=== PATIENT | male | born 1955 | race Caucasian/White ===

== ENCOUNTER 2017-06-17 10:57 | Inpatient (IN) | payer OTHER ==
[~2017-06-17] VITALS: Ht 182.9 cm; Wt 66.2 kg
[2017-06-17] VITALS (8 sets, daily range): BP systolic 99–124; BP diastolic 54–86
[2017-06-17 11:33] LABS: HEMATOCRIT 48.3 % (42.0-52.0); HEMOGLOBIN 16.5 gm/dL (14.0-18.0); MCHC 34.2 g/dL (28.0-37.0); MCV 93.7 fL (80.0-100.0); MPV 9.7 fl. (7.2-11.1); NUCLEATED RBCS 0 /100WBC; PLATELET COUNT* 112 thou/uL (150-400); RBC 5.16 mil/uL (4.50-6.00); RDW-CV 13.7 % (10.5-14.5); WBC 14.6 thou/uL (4.0-11.0)
[2017-06-17 11:39] LABS: ANION GAP 9 mmol/L (7-16); BUN 28 mg/dL (7-18); CALCIUM 9.3 mg/dL (8.5-10.1); CHLORIDE 94 mmol/L (98-107); CO2 27 mmol/L (21-32); CREATININE 1.6 mg/dL (0.6-1.3); GLUCOSE 155 mg/dL (70-99); POTASSIUM 4.4 mmol/L (3.5-5.1); SODIUM 130 mmol/L (136-145)
[2017-06-17 11:41] LABS: INR 1.1; PROTIME 10.5 Seconds (9.20-11.50)
[2017-06-17 11:46] LABS: BE -2.9 mmol/L (-2 to +3); HCO3 24.5 mmol/L (22.0-26.0); PO2 74.8 mmHg (75.0-100.0)
[2017-06-17 11:47] LABS: PCO2 51.6 mmHg (35.0-45.0); pH 7.294 (7.340-7.450)
[2017-06-17 11:51] LABS: ALBUMIN 2.7 g/dL (3.4-5.0); ALKALINE PHOSPHATASE 57 U/L (46-116); LIPASE 55 U/L (73-393); NT-PRO BRAIN NAT PEPTIDE 4571 pg/mL (<300); SGOT 65 U/L (15-37); SGPT 51 U/L (30-65); TOTAL PROTEIN 7.2 g/dL (6.4-8.2); TROPONIN-I LEVEL <0.06 ng/mL (<0.06)
[2017-06-17 12:01] LABS: INFLUENZA A ANTIGEN None Detected (None Detect); INFLUENZA B ANTIGEN None Detected (None Detect)
[2017-06-17 12:14] LABS: METAMYELOCYTES 3 %; MYELOCYTES 2 %
[2017-06-17 12:15] LABS: ABSOLUTE MONOCYTES 0.7 thou/uL (0.0-1.2); ABSOLUTE NEUTROPHILS 12.8 thou/uL (1.6-8.1); PLATELET ESTIMATE ADEQUATE
[2017-06-17 15:00] LABS: BE -3.9 mmol/L (-2 to +3); HCO3 23.6 mmol/L (22.0-26.0)
[2017-06-17 15:02] LABS: PCO2 51.9 mmHg (35.0-45.0); pH 7.275 (7.340-7.450)
--- NOTE | 2017-06-17 17:06 | 2DMMODE ---
[place] [address] 2 D/M-MODE ECHOCARDIOGRAM Name: JULIAN SIMS Room: [address] IN [facility]#: [id number] Admission: 06/17/17 Attend Phys: Inocencio Mo Discharge: Date of : 51 Date of Service: 06/17/17 1706 Report #: [id number] THIS REPORT FOR: //name// APPROVED REPORT Study performed: 06/17/2017 15:29:39 EXAM: Comprehensive 2D, Doppler, and color-flow Echocardiogram Patient Location: In-Patient Room #: ER Status: routine BSA: 2.13 HR: 96 bpm BP: 104/59 mmHg Rhythm: Atrial Fibrillation Other Information Study Quality: Good Indications Dyspnea 2D Dimensions LVEF(%): 39.88 (>50%) IVSd: 11.94 (7-11mm) LVOT Diam: 21.33 (18-24mm) LVDd: 49.22 mm PWd: 11.35 (7-11mm) LVDs: 39.64 (25-40mm) Aortic Root: 33.06 mm Guardado's LVEF: 39.88 % Volumes Left Atrial Volume (Systole) LA ESV Index: 15.00 mL/m2 Aortic Valve AoV Peak Ramana.: 1.52 m/s AO Peak Gr.: 9.19 mmHg LVOT Max P.59 mmHg AO Mean Gr.: 5.40 mmHg LVOT Mean P.40 mmHg LVOT Max V: 1.07 m/s AO V2 VTI: 20.54 cm LVOT Mean V: 0.73 m/s ALISIA (VTI): 2.79 cm2 LVOT V1 VTI: 16.02 cm AI Hyde: 2.54 m/s2 AI PHT: 452.89 [place] [address] 2 D/M-MODE ECHOCARDIOGRAM Name: JULIAN SIMS Room: [address] IN [facility].#: [id number] Admission: 06/17/17 Attend Phys: Inocencio Mo Discharge: Date of : 51 Date of Service: 06/17/17 1706 Report #: [id number] Mitral Valve MV Decel. Time: 102.04 ms MV PHT: 29.59 ms MVA (PHT): 7.43 cm2 TDI Medial E' Ramana.: 0.12 m/s Lateral E' Ramana.: 0.12 m/s Pulmonary Valve PV Peak Ramana.: 1.07 m/s PV Peak Gr.: 4.56 mmHg Tricuspid Valve TR Peak Gr.: 16.66 mmHg RVSP: 21.00 mmHg Left Ventricle The left ventricle is normal size. There is normal LV segmental wall motion. There is normal left ventricular wall thickness. Left ventricular systolic function is mildly decreased. LVEF is 40-45%. This study is not technically sufficient to allow evaluation of the LV diastolic function due to atrial fibrillation. Right Ventricle The right ventricle is normal size. The right ventricular systolic function is normal. Atria The left atrium size is normal. The right atrium size is normal. Aortic Valve The aortic valve is normal in structure. Moderate aortic regurgitation. There is no aortic valvular stenosis. Mitral Valve The mitral valve is normal in structure. There is no mitral valve regurgitation noted. No evidence of mitral valve stenosis. Tricuspid Valve The tricuspid valve is normal in structure. Trace tricuspid regurgitation. The RVSP is ___21____ mmHg. Pulmonic Valve The pulmonary valve is normal in structure. There is no pulmonic [place] [address] 2 D/M-MODE ECHOCARDIOGRAM Name: JULIAN SIMS Room: [address]#: [id number] Admission: 06/17/17 Attend Phys: Inocencio Mo Discharge: Date of : 51 Date of Service: 06/17/17 1706 Report #: [id number] Great Vessels The aortic root is normal in size. IVC is normal in size and collapses with >50% inspiration Pericardium There is no pericardial effusion. <Conclusion> The left ventricle is normal size. There is normal left ventricular wall thickness. Left ventricular systolic function is mildly decreased. LVEF is 40-45%. This study is not technically sufficient to allow evaluation of the LV diastolic function due to atrial fibrillation. Moderate aortic regurgitation. Trace tricuspid regurgitation. The RVSP is ___21____ mmHg. <ELECTRONICALLY SIGNED> By: Car Kothari MD, [facility] 06/17/171705 05 05 Car Kothari MD, FACC /INF
--- NOTE | 2017-06-17 17:32 | EKG ---
[place] [address] ELECTROCARDIOGRAM REPORT Name: JULIAN SIMS Room: [address] ADM IN [facility]#: [id number] Admission: 06/17/17 Attend Phys: Bolivar Serrato Discharge: Date of : 51 Report #: [id number] THIS REPORT FOR: //name// [facility] ED Test Date: 2017-06-17 Test Time: 11:22:06 Pat Name: JULIAN SIMS Department: Room: [facility] Gender: M Audiovisual Tech: : 1955 Requested By: Fly Carlilse Order Number: [id number] Ivan MD: Car Kothari Measurements Intervals [place] Rate: 138 P: WV: QRS: 58 QRSD: 89 T: 0 QT: 212 QTc: 321 Interpretive Statements Atrial flutter with variable AV conduction Borderline repol abnrm, inferolateral leads Baseline wander in lead(s) I,II,aVR No previous ECG available for comparison Electronically Signed On 06-17-2017 17:32:30 CITY PLANT SUPERVISOR by Car Kothari [email or web address] <ELECTRONICALLY SIGNED> By: Car Kothari MD, FACC 06/17/17 1732 1122 1122 Car Kothari MD, FAC /EPI
--- NOTE | 2017-06-17 17:32 | EKG ---
[place] [address] ELECTROCARDIOGRAM REPORT Name: JULIAN SIMS Room: [address] ADM IN [facility]#: [id number] Admission: 06/17/17 Attend Phys: Bolivar Serrato Discharge: Date of : 51 Report #: [id number] THIS REPORT FOR: //name// [facility] ED Test Date: 2017-06-17 Test Time: 11:12:14 Pat Name: JULIAN SIMS Department: Room: [facility] Gender: M Dental Services Director: Jarod DEY : 1955 Requested By: Fly Carlisle Order Number: [id number] MD: Car Kothari Measurements Intervals [place] Rate: 171 P: 79 SC: 81 QRS: 44 QRSD: 126 T: -78 QT: 309 QTc: 522 Interpretive Statements Atrial flutter with 21 conduction Nonspecific intraventricular conduction delay No previous ECG available for comparison Electronically Signed On 06-17-2017 17:32:01 ENGAGEMENT MANAGER by Car Kothari [email or web address] <ELECTRONICALLY SIGNED> By: Car Kothari MD, [facility] 06/17/17 1732 1112 111 Car Kothari MD, FAC /EPI
[2017-06-18] VITALS (34 sets, daily range): BP systolic 99–178; BP diastolic 45–85
[2017-06-18 03:24] LABS: BE -5.3 mmol/L (-2 to +3); HCO3 22.7 mmol/L (22.0-26.0)
[2017-06-18 03:28] LABS: PCO2 54.5 mmHg (35.0-45.0); pH 7.238 (7.340-7.450)
[2017-06-18 03:29] LABS: PO2 146.8 mmHg (75.0-100.0)
[2017-06-18 05:09] LABS: ABSOLUTE LYMPHOCYTES 0.2 thou/uL (0.8-5.3); EOSINOPHILS 0.1 %; MONOCYTES 0.1 %; RDW-CV 14.2 % (10.5-14.5)
[2017-06-18 05:10] LABS: ABSOLUTE NEUTROPHILS 11.7 thou/uL (1.6-8.1); BASOPHILS 0.1 %; HEMATOCRIT 40.4 % (42.0-52.0); LYMPHOCYTES 1.4 %; MCH 31.8 pg (26.0-34.0); MCHC 33.5 g/dL (28.0-37.0); MCV 94.8 fL (80.0-100.0); MPV 9.3 fl. (7.2-11.1); NUCLEATED RBCS 0 /100WBC; PLATELET COUNT* 131 thou/uL (150-400); POLYS 98.3 %; RBC 4.26 mil/uL (4.50-6.00); WBC 11.9 thou/uL (4.0-11.0)
[2017-06-18 05:28] LABS: CALCIUM 8.5 mg/dL (8.5-10.1); CREATININE 1.4 mg/dL (0.6-1.3); POTASSIUM 4.7 mmol/L (3.5-5.1); TOTAL BILIRUBIN 0.7 mg/dL (<0.1-1.0); TOTAL PROTEIN 6.1 g/dL (6.4-8.2)
[2017-06-18 05:52] LABS: HEMOGLOBIN 13.5 gm/dL (14.0-18.0)
--- NOTE | 2017-06-18 12:25 | EKG ---
[place] [address] ELECTROCARDIOGRAM REPORT Name: JULIAN SIMS Room: [address] ADM IN [facility]#: [id number] Admission: 06/17/17 Attend Phys: Bolivar Serrato Discharge: Date of : 51 Report #: [id number] THIS REPORT FOR: //name// [facility] ED Test Date: 2017-06-17 Test Time: 15:00:26 Pat Name: JULIAN SIMS Department: Room: [facility] Gender: M Director Cpg: Jarod DEY : 1955 Requested By: Fly Carlisle Order Number: [id number] MD: Bj Everett Measurements Intervals [place] Rate: 123 P: NV: QRS: 67 QRSD: 87 T: 51 QT: 319 QTc: 457 Interpretive Statements Atrial fibrillation Compared to ECG 06/17/2017 11:22:06 Atrial flutter no longer present Electronically Signed On 06-18-2017 12:25:39 ANIMAL RESEARCHER by Bj Everett [email or web address] <ELECTRONICALLY SIGNED> By: Bj Everett MD, [facility] 06/18/17 1225 1500 1500 Bj Everett MD, [facility] /EPI
--- NOTE | 2017-06-18 12:33 | EKG ---
[place] [address] ELECTROCARDIOGRAM REPORT Name: JULIAN SIMS Room: [address] ADM IN .R.#: [id number] Admission: 06/17/17 Attend Phys: Bolivar Serrato Discharge: Date of : 51 Report #: [id number] THIS REPORT FOR: //name// [facility] Test Date: 2017-06-18 Test Time: 08:08:53 Pat Name: JULIAN SIMS Department: Room: [address] Gender: M Value Analysis Coordinator: : 1955 Requested By: Inocencio Mo Order Number: [id number] Ivan MD: Bj Everett Measurements Intervals [place] Rate: 94 P: OR: QRS: 65 QRSD: 100 T: 58 QT: 352 QTc: 441 Interpretive Statements Atrial fibrillation Probable left ventricular hypertrophy Baseline wander in lead(s) V3 Compared to ECG 06/17/2017 11:22:06 rate slowed Electronically Signed On 06-18-2017 12:32:41 NURSING SUPPORT WORKER by Bj Everett [email or web address] <ELECTRONICALLY SIGNED> By: Bj Everett MD, [facility] 06/18/17 1232 0808 0808 Bj Everett MD, [facility] /EPI
[2017-06-18 16:58] LABS: BE -2.5 mmol/L (-2 to +3); HCO3 23.9 mmol/L (22.0-26.0); PCO2 47.3 mmHg (35.0-45.0); PO2 91.9 mmHg (75.0-100.0); pH 7.321 (7.340-7.450)
[2017-06-19] VITALS (49 sets, daily range): BP systolic 103–145; BP diastolic 53–79
[2017-06-19 08:31] LABS: BE -2.7 mmol/L (-2 to +3); HCO3 23.7 mmol/L (22.0-26.0); PCO2 46.9 mmHg (35.0-45.0); PO2 73.3 mmHg (75.0-100.0); pH 7.321 (7.340-7.450)
[2017-06-19 13:48] LABS: ALBUMIN 1.7 g/dL (3.4-5.0); CALCIUM 8.4 mg/dL (8.5-10.1); CREATININE 1.2 mg/dL (0.6-1.3); MAGNESIUM 2.9 mg/dL (1.8-2.4); POTASSIUM 4.3 mmol/L (3.5-5.1); TOTAL BILIRUBIN 0.5 mg/dL (<0.1-1.0); TOTAL PROTEIN 5.4 g/dL (6.4-8.2)
[2017-06-19 13:49] LABS: ABSOLUTE BASOPHILS 0.1 thou/uL (0.0-0.2); ABSOLUTE LYMPHOCYTES 0.2 thou/uL (0.8-5.3); ABSOLUTE NEUTROPHILS 13.8 thou/uL (1.6-8.1); BASOPHILS 0.5 %; HEMATOCRIT 38.8 % (42.0-52.0); HEMOGLOBIN 12.8 gm/dL (14.0-18.0); LYMPHOCYTES 1.4 %; MCH 31.9 pg (26.0-34.0); MCHC 32.9 g/dL (28.0-37.0); MCV 96.8 fL (80.0-100.0); MONOCYTES 0.3 %; MPV 9.7 fl. (7.2-11.1); NUCLEATED RBCS 0 /100WBC; PLATELET COUNT* 151 thou/uL (150-400); POLYS 97.8 %; RBC 4.01 mil/uL (4.50-6.00); RDW-CV 14.9 % (10.5-14.5); WBC 14.1 thou/uL (4.0-11.0)
[2017-06-20] VITALS (17 sets, daily range): BP systolic 99–134; BP diastolic 54–73
[2017-06-20 04:38] LABS: ABSOLUTE LYMPHOCYTES 0.2 thou/uL (0.8-5.3); ABSOLUTE MONOCYTES 0.2 thou/uL (0.0-1.2); ABSOLUTE NEUTROPHILS 15.7 thou/uL (1.6-8.1); BASOPHILS 0.2 %; HEMATOCRIT 38.4 % (42.0-52.0); HEMOGLOBIN 12.6 gm/dL (14.0-18.0); LYMPHOCYTES 1.3 %; MCH 31.5 pg (26.0-34.0); MCHC 32.9 g/dL (28.0-37.0); MCV 95.9 fL (80.0-100.0); MONOCYTES 1.2 %; MPV 8.9 fl. (7.2-11.1); NUCLEATED RBCS 0 /100WBC; PLATELET COUNT* 144 thou/uL (150-400); POLYS 97.3 %; RBC 4.01 mil/uL (4.50-6.00); RDW-CV 14.9 % (10.5-14.5); WBC 16.1 thou/uL (4.0-11.0)
[2017-06-20 04:56] LABS: ALBUMIN 1.7 g/dL (3.4-5.0); CALCIUM 9.1 mg/dL (8.5-10.1); CREATININE 1.2 mg/dL (0.6-1.3); MAGNESIUM 2.9 mg/dL (1.8-2.4); POTASSIUM 4.1 mmol/L (3.5-5.1); TOTAL BILIRUBIN 0.5 mg/dL (<0.1-1.0); TOTAL PROTEIN 6.4 g/dL (6.4-8.2)
[2017-06-20 08:23] LABS: BE -1.3 mmol/L (-2 to +3); PCO2 47.8 mmHg (35.0-45.0); PO2 72.6 mmHg (75.0-100.0); pH 7.336 (7.340-7.450)
[2017-06-20 22:26] LABS: URINE BILIRUBIN NEGATIVE (Negative); URINE BLOOD 3+ (Negative); URINE CLARITY CLEAR; URINE COLOR YELLOW; URINE GLUCOSE-RANDOM NEGATIVE (Negative); URINE KETONES NEGATIVE (Negative); URINE LEUKOCYTES-REFLEX NEGATIVE (Negative); URINE NITRITE-REFLEX NEGATIVE (Negative); URINE PROTEIN TRACE (Negative); URINE SPECIFIC GRAVITY 1.015 (1.005-1.030); URINE UROBILINOGEN 0.2 E.U./dl (0.2-1.0)
[2017-06-20 22:35] LABS: SQUAMOUS 0-3 Few /LPF (0-3); URINE WBC-REFLEX None Seen /HPF (0-5)
[2017-06-20 22:36] LABS: BACTERIA-REFLEX None Seen /HPF (None Seen); CRYSTALS None Seen /LPF (None Seen); FINE GRANULAR CASTS 0-3 Few /LPF (None Seen); HYALINE CASTS 0-3 Few /LPF (None Seen); URINE RBC >20 Many /HPF (0-2)
[2017-06-21] VITALS (18 sets, daily range): BP systolic 114–156; BP diastolic 57–86
[2017-06-21 04:55] LABS: HEMATOCRIT 37.6 % (42.0-52.0); HEMOGLOBIN 12.4 gm/dL (14.0-18.0); MCH 31.4 pg (26.0-34.0); MCHC 32.9 g/dL (28.0-37.0); MCV 95.5 fL (80.0-100.0); MPV 8.9 fl. (7.2-11.1); NUCLEATED RBCS 0 /100WBC; PLATELET COUNT* 131 thou/uL (150-400); RBC 3.94 mil/uL (4.50-6.00); WBC 13.8 thou/uL (4.0-11.0)
[2017-06-21 05:10] LABS: CREATININE 1.2 mg/dL (0.6-1.3); POTASSIUM 3.9 mmol/L (3.5-5.1)
[2017-06-21 05:30] LABS: ABSOLUTE LYMPHOCYTES 0.3 thou/uL (0.8-5.3); ABSOLUTE NEUTROPHILS 13.5 thou/uL (1.6-8.1); ANISOCYTOSIS 1+; PLATELET ESTIMATE DECREASED; POIKILOCYTOSIS 1+
--- NOTE | 2017-06-21 08:34 | CON ---
[address] [address] CONSULTATION Name: JULIAN SIMS Zonia Room: [address] IN .R#: [id number] Admission: 06/17/17 Attend Phys: Bolivar Serrato Discharge: Date of : 51 Report #: [id number] THIS REPORT FOR: //name// CC: MEE physician/PCP Inocencio Mo DATE OF SERVICE: 06/17/2017 CARDIOLOGY CONSULTATION INDICATION: Atrial flutter with rapid ventricular response rate. HISTORY OF PRESENT ILLNESS: The patient is a 61-year-old gentleman who was seen in the Emergency Room with complaints of progressive shortness of breath and dyspnea. He was noted to be in atrial flutter with rapid ventricular response. Adenosine challenge and covered atrial flutter pattern. The patient denies any prior cardiac history. He is not having palpitations. Presently on BiPAP. He is alert and oriented. He denies chest pain. He is not having orthopnea. Chest x-ray suggests multi-lobe pneumonitis. He does not have cardiomegaly. PAST MEDICAL HISTORY: None. MEDICATIONS: None. ALLERGIES: None. SOCIAL HISTORY: One pack per day smoker. The patient denies alcohol use. FAMILY HISTORY: Noncontributory. REVIEW OF SYSTEMS: Not obtained as the patient on BiPAP presently. PHYSICAL EXAMINATION: VITAL SIGNS: Presently stable. Blood pressure 99/60, pulse 140s-150s and regular. GENERAL: This is a thin, somewhat unkempt gentleman who does not appear in distress. HEENT: Head is normocephalic, atraumatic. Pupils equally round and reactive to light. Extraocular muscles are intact. BiPAP in place. NECK: Shows moderate jugular venous distention. CHEST: Reveals course breath sounds bilaterally without obvious wheezes. CARDIAC: Reveals a tachycardic rhythm that appears relatively regular. I do not appreciate obvious gallop or murmur. ABDOMEN: Reveals normal bowel sounds. The abdomen is soft and nontender. EXTREMITIES: Shows no edema. Peripheral pulses are 2+ and palpable. SKIN: [place] [address] CONSULTATION Name: JULIAN SIMS Room: [address] IN [facility]#: [id number] Admission: 06/17/17 Attend Phys: Bolivar Serrato Discharge: Date of : 51 Report #: [id number] DIAGNOSTIC DATA: A 12-lead EKG shows atrial flutter with rapid ventricular response rate. Labs are reviewed. Sodium 130, potassium 4.4, chloride 94, bicarbonate 27, BUN 28, creatinine 1.6, serum glucose 55, AST minimally elevated at 65. The remainder of his LFTs are within normal limits. Albumin is slightly low at 2.7. Troponin is less than 0.06. His NT-proBNP was 4571. White blood cell count 14.6, hemoglobin 16.5, platelet count 112,000. Initial blood gas, pH 7.29, pCO2 of 52, pO2 of 75 on 4 liters nasal cannula. Chest x-ray shows bilateral pneumonitis without effusion, normal cardiac silhouette. VQ scan pending. IMPRESSION AND RECOMMENDATIONS: 1. Atrial flutter with rapid ventricular response. Continue diltiazem drip. The patient is being given bolus Lopressor in an effort to improve rate control. If this fails to improve his dysrhythmia, consider amiodarone bolus and drip. No anticoagulant at this point in time. We will assess once we have clinical improvement. Echocardiogram ordered and pending. We will obtain serial troponins. Initial troponin is unremarkable. He has no clinical symptoms to suggest acute coronary syndrome. 2. Hypercoagulable state secondary to atrial flutter. We will reassess need for anticoagulant within the next 24 hours. 3. Pneumonia. IV antibiotics and steroids per primary care physician. 4. Chronic tobacco abuse. We will discuss smoking cessation during this hospitalization. 5. Mild hypotension due to tachycardia. We will give fluid bolus at this time. 6. Elevated NT-proBNP likely due to atrial tachycardia; however, we will obtain echocardiogram to evaluate for possible underlying congestive heart failure. <ELECTRONICALLY SIGNED> By: Car Kothari MD, FACC 06/21/17 0834 1442 2250Car Kothari MD, FACC /nt
--- NOTE | 2017-06-21 10:00 | CON ---
[address] [address] CONSULTATION Name: JULIAN SIMS Room: [address] IN M.R.#: [id number] Admission: 06/17/17 Attend Phys: Bolivar Serrato Discharge: Date of : 51 Report #: [id number] THIS REPORT FOR: //name// CC: MEE physician/PCP Inocencio Mo REASON FOR CONSULTATION: Acute respiratory failure. HISTORY OF PRESENT ILLNESS: The patient is a 61-year-old male patient, who according to him, does not carry a diagnosis of COPD or lung disease, not on oxygen or inhalers at home. He has history of smoking in the past, although he quit. He presented to the hospital with chief complaint of shortness of breath that started 2 weeks ago, had been progressive and worsening. These symptoms were associated with cough, feeling congestion in his chest and change in bowel habits in the form of diarrhea, also associated with insomnia. He tried some bmxn-miq-stlrulp NyQuil, without improvement in his symptoms and since his symptoms had worsened, he presented to the ER. The patient reported that he quit smoking only when he got sick 2 weeks ago. Upon presentation to the hospital, he was found to be in atrial flutter with rapid ventricular response. He was given adenosine upon presentation. He is currently on Cardizem drip. He has no cardiac history. He denies palpitation. Upon presentation, he was found to be in respiratory distress and he was placed on BiPAP for hypercapnic respiratory failure. When I interviewed the patient, he was on BiPAP, awake, alert and oriented, answering questions properly, although there was some limitation because the BiPAP mask was in place, but he was protecting the airways. He denied any orthopnea or PND. His chest x-ray showed bilateral pulmonary infiltrates. PAST MEDICAL HISTORY: Per the patient, no chronic past medical problems. ALLERGIES: No known drug allergies. HOME MEDICATIONS: Apparently, he does not take any medication at home. PAST SURGICAL HISTORY: None. He had oral surgery in the past. FAMILY HISTORY: Reviewed with the patient and noncontributory. SOCIAL HISTORY: He smoked for almost 40 years, 1 pack per day. He quit when he got sick 2 weeks ago. REVIEW OF SYSTEMS: He is not aware of any fever or chills, but he has weakness. He denied any eye symptoms. He denied any headache or blurring of vision. He denies any sore throat, nasal discharge or obstruction. He denied any hemoptysis. He denied any chest pain or abdominal distention. However, he had diarrhea. He denied dysuria, frequency or urgency. [place] [address] CONSULTATION Name: JULIAN SIMS Room: [address] IN [facility]#: [id number] Admission: 06/17/17 Attend Phys: Bolivar Serrato Discharge: Date of : 51 Report #: [id number] extremity edema. Rest of the review of systems was negative. PHYSICAL EXAMINATION: VITAL SIGNS: During my evaluation, the patient was on BiPAP. He was on 50% FIO2. His O2 saturation was more than 90%. Blood pressure 117/59, not on vasopressors; breathing around 26 times a minute, pulse rate of 90 and temperature of 37.4. GENERAL: Awake, alert, on BiPAP, protecting the airways, answering questions appropriately. HEENT: Head normocephalic, atraumatic. Pupils are equal and reactive to light. Extraocular muscle movements intact. NECK: Supple. No palpable lymph node. No palpable thyroid. Trachea is central. CHEST: Diminished air movement bilaterally, with end-expiratory wheeze in addition to crackles heard bilaterally, with a prolonged expiratory phase. HEART: S1, S2, slightly tachycardic, in AFib. ABDOMEN: Benign, soft, lax, nontender. Positive bowel sounds. No masses felt. LOWER EXTREMITIES: No edema. No calf tenderness. SKIN: Normal for age and race. No rash. LYMPHATIC: No palpable lymph nodes. MUSCULOSKELETAL: Normal on inspection. No deformities. NEUROLOGIC: Moving 4 extremities spontaneously. No focal weakness. PSYCHIATRIC: Mood and affect difficult to evaluate, but he was calm and cooperating with exam. LABORATORY DATA: His chest x-ray initially showed bilateral infiltrates. However, followup chest x-ray showed actually worsening infiltrates bilaterally. His white blood count was 14.6 with hemoglobin of 16.5 and platelets 112,000. He had slight left shift on the differential. His ABGs, he had 3 sets of ABGs that showed hypercapnic respiratory failure. His last set of ABGs, 7.23/54/146 on 50% FiO2 with the BiPAP / and his FIO2 need had been improving. Influenza screen A and B negative. MRSA screen pending. IMPRESSION: 1. Acute hypoxic and hypercapnic respiratory failure. 2. Chronic obstructive pulmonary disease exacerbation. 3. Pneumonia. 4. Atrial flutter. 5. Smoker. PLAN: Although the patient's ABG is showing hypercapnic respiratory failure on BiPAP, however, he is tolerating the BiPAP well. He is protecting the airways. I would continue to monitor him in the ICU closely and follow ABGs and chest x-rays. His mental status is stable, cooperative and protecting the airways. I am going to add vancomycin to the cefepime and defer atrial fibrillation management to Cardiology. Continue scheduled nebulization treatments every [address] [place] [address] CONSULTATION Name: JULIAN SIMS Zonia Room: [address] IN [facility].#: [id number] Admission: 06/17/17 Attend Phys: Bolivar Serrato Discharge: Date of : 51 Report #: [id number] hours. Continue the steroids. I would keep him n.p.o. for now until his respiratory status improves. We will do followup chest x-ray and ABGs when he is more stable and contrast for CT scan of the chest can be useful. Thank you for the consult. We will follow along with you. <ELECTRONICALLY SIGNED> By: Josiah Shirley MD 06/21/17 1000 0946 1027Josiah Shirley MD /silvano
[2017-06-21 15:57] LABS: BE 0.9 mmol/L (-2 to +3); HCO3 26.7 mmol/L (22.0-26.0); PCO2 47.5 mmHg (35.0-45.0); PO2 94.5 mmHg (75.0-100.0); pH 7.368 (7.340-7.450)
[2017-06-21 16:10] LABS: HIV-1/HIV-2 ANTIBODY Non Reactive (Non Reactive)
[2017-06-22] VITALS (19 sets, daily range): BP systolic 141–175; BP diastolic 52–96
[2017-06-22 02:45] LABS: BE 4.7 mmol/L (-2 to +3); HCO3 30.8 mmol/L (22.0-26.0); PO2 94.8 mmHg (75.0-100.0); pH 7.389 (7.340-7.450)
[2017-06-22 02:47] LABS: PCO2 52.1 mmHg (35.0-45.0)
[2017-06-22 04:55] LABS: ABSOLUTE LYMPHOCYTES 0.2 thou/uL (0.8-5.3); ABSOLUTE MONOCYTES 0.1 thou/uL (0.0-1.2); ABSOLUTE NEUTROPHILS 9.7 thou/uL (1.6-8.1); BASOPHILS 0.1 %; HEMATOCRIT 38.8 % (42.0-52.0); HEMOGLOBIN 12.6 gm/dL (14.0-18.0); LYMPHOCYTES 2.1 %; MCH 30.9 pg (26.0-34.0); MCHC 32.5 g/dL (28.0-37.0); MCV 95.1 fL (80.0-100.0); MONOCYTES 1.5 %; MPV 9.1 fl. (7.2-11.1); NUCLEATED RBCS 0 /100WBC; PLATELET COUNT* 111 thou/uL (150-400); POLYS 96.3 %; RBC 4.07 mil/uL (4.50-6.00); RDW-CV 15.5 % (10.5-14.5); WBC 10.1 thou/uL (4.0-11.0)
[2017-06-22 05:03] LABS: CALCIUM 8.7 mg/dL (8.5-10.1); CREATININE 1.3 mg/dL (0.6-1.3); POTASSIUM 3.9 mmol/L (3.5-5.1)
[2017-06-23] VITALS (17 sets, daily range): BP systolic 129–171; BP diastolic 50–90
[2017-06-23 02:07] LABS: ADENOVIRUS Negative (Negative); INFLUENZA A Negative (Negative); INFLUENZA B Negative (Negative); METAPNEUMOVIRUS Negative (Negative); PARAINFLUENZA 1 Negative (Negative); PARAINFLUENZA 2 Negative (Negative); PARAINFLUENZA 3 Negative (Negative); RHINOVIRUS Negative (Negative); RSV A Negative (Negative); RSV B Negative (Negative)
[2017-06-23 02:45] LABS: ABSOLUTE LYMPHOCYTES 0.4 thou/uL (0.8-5.3); ABSOLUTE MONOCYTES 0.4 thou/uL (0.0-1.2); ABSOLUTE NEUTROPHILS 10.1 thou/uL (1.6-8.1); BASOPHILS 0.1 %; HEMATOCRIT 39.4 % (42.0-52.0); LYMPHOCYTES 3.3 %; MCH 31.6 pg (26.0-34.0); MCV 95.8 fL (80.0-100.0); MPV 9.8 fl. (7.2-11.1); NUCLEATED RBCS 0 /100WBC; PLATELET COUNT* 71 thou/uL (150-400); POLYS 92.6 %; RBC 4.11 mil/uL (4.50-6.00); WBC 10.9 thou/uL (4.0-11.0)
[2017-06-23 03:06] LABS: ALBUMIN 1.6 g/dL (3.4-5.0); CALCIUM 8.5 mg/dL (8.5-10.1); CREATININE 1.4 mg/dL (0.6-1.3); POTASSIUM 3.7 mmol/L (3.5-5.1); TOTAL BILIRUBIN 3.6 mg/dL (<0.1-1.0)
[2017-06-23 04:38] LABS: BE 4.8 mmol/L (-2 to +3); HCO3 29.1 mmol/L (22.0-26.0); PCO2 42.2 mmHg (35.0-45.0); PO2 76.8 mmHg (75.0-100.0); pH 7.457 (7.340-7.450)
[2017-06-24] VITALS (20 sets, daily range): BP systolic 105–158; BP diastolic 47–74
[2017-06-24 04:30] LABS: ALBUMIN 1.6 g/dL (3.4-5.0); CALCIUM 8.4 mg/dL (8.5-10.1); CREATININE 1.5 mg/dL (0.6-1.3); POTASSIUM 4.2 mmol/L (3.5-5.1); TOTAL BILIRUBIN 2.1 mg/dL (<0.1-1.0); TOTAL PROTEIN 5.2 g/dL (6.4-8.2)
[2017-06-24 16:57] LABS: BE 5.5 mmol/L (-2 to +3); HCO3 30.3 mmol/L (22.0-26.0); PCO2 44.6 mmHg (35.0-45.0); PO2 96.3 mmHg (75.0-100.0)
[2017-06-25] VITALS (11 sets, daily range): BP systolic 101–139; BP diastolic 49–61
[2017-06-25 04:52] LABS: ALBUMIN 1.4 g/dL (3.4-5.0); CALCIUM 8.1 mg/dL (8.5-10.1); CREATININE 1.3 mg/dL (0.6-1.3); MAGNESIUM 2.4 mg/dL (1.8-2.4); POTASSIUM 4.3 mmol/L (3.5-5.1); TOTAL BILIRUBIN 1.5 mg/dL (<0.1-1.0)
--- NOTE | 2017-06-25 20:10 | CON ---
[address] [address] CONSULTATION Name: MEHRANELLENJULIAN Zonia Room: [address] IN .R.#: [id number] Admission: 06/17/17 Attend Phys: Bolivar Serrato Discharge: Date of : 51 Report #: [id number] THIS REPORT FOR: //name// CC: MEE physician/PCP Inocencio Mo DATE OF SERVICE: 06/24/2017 HISTORY OF PRESENT ILLNESS: This is a 61-year-old male patient who was evaluated by me for altered mental status. This patient does not provide any reliable history, rather he does not talk much. The nurses provided history in this patient and I reviewed the patient's records. This patient has multiple metabolic disturbances. He was admitted with shortening of breath, cough, and congestion and subsequently looks like he has multiple other problems including . The patient is improving to some extent, but the patient is still significantly confused. To me, this patient does not let me examine and is very difficult to carry out much of the examination. REVIEW OF SYSTEMS: Indicate that this patient was seen by cardiology for atrial flutter. He is being followed by multiple other physicians including pulmonary. It looks like he had hypercapnic respiratory failure. This was this patient's 14-point review of systems, which I could obtain from the records. His creatinine has been high. PAST MEDICAL HISTORY: Again, from the records and does look like it is positive for any stroke. FAMILY HISTORY: Unavailable, but I do not think this patient has any family history of any early stroke, no mention of that I could see. SOCIAL HISTORY: Apparently, he does not drink any alcohol. PHYSICAL EXAMINATION: Pretty limited. He keeps his eyes closed and would not let me open it. When I asked him to follow simple command, he does it at about 25% of the time. Otherwise, he is alert when he opens his eyes, but otherwise sleepy. He has no meningeal sign and I cannot carry out any other examination in this patient. He is on pressure breathing. 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 Blood pressure is 115/74 and temperature is 98.6. LABORATORY DATA: WBC is 10.9. IMPRESSION: This patient probably has encephalitis, but he cannot have embolization from the heart with so many things going on with him, therefore it will be desirable to do a CT scan of [place] [address] CONSULTATION Name: JULIAN SIMS Zonia Room: [address]#: [id number] Admission: 06/17/17 Attend Phys: Bolivar Serrato Discharge: Date of : 51 Report #: [id number] RECOMMENDATIONS: 1. I will get a CAT scan done. 2. I will get an EEG done. 3. I will get TSH and vitamin B12 done. 4. We will look at these tests and discuss with you about any other recommendation. I tried to talk to the patient about these testing and I am not sure how much he understands. Thank you very much for this referral. <ELECTRONICALLY SIGNED> By: Moshe Maurice MD 06/25/172009 1150 1452Pbeverly Maurice MD /nt
--- NOTE | 2017-06-25 20:10 | EEG ---
[address] [address] EEG STUDY REPORT Name: JULIAN SIMS Zonia Room: [address] IN [facility]#: [id number] Admission: 06/17/17 Attend Phys: Bolivar Serrato Discharge: Date of : 51 Report #: [id number] THIS REPORT FOR: //name// CC: MEE physician/PCP Inocencio Mo DATE OF SERVICE: 06/24/2017 This patient is being evaluated for altered mental status. EEG was done by placing the electrodes by standard 10/20 system of electrode placement. Both referential and sequential montages were used for recording. Background activity in this patient's EEG is about 7 Hz and 30 microvolt. This is a symmetrical activity. Photic stimulation was unremarkable. This patient became drowsy that is associated with bilaterally symmetrical slowing and vertex sharp waves. Throughout the record, no active epileptiform activity was noticed. Photic stimulation is unremarkable. IMPRESSION: This is an abnormal EEG, which is slow and poorly formed. That is a nonspecific finding, which can occur with encephalopathy, effect of psychotropic medication, dementia, etc. Clinical correlation is recommended. <ELECTRONICALLY SIGNED> By: Moshe Maurice MD 06/25/172009 1837 16Parjuventino Maurice MD /nt
[2017-06-26] VITALS: BP 111/53
[2017-06-26 04:00] VITALS: BP 104/46
[2017-06-26 08:30] VITALS: BP 114/52
[2017-06-26 08:51] LABS: CALCIUM 7.5 mg/dL (8.5-10.1); CREATININE 1.3 mg/dL (0.6-1.3); POTASSIUM 3.7 mmol/L (3.5-5.1)
[2017-06-26 12:22] VITALS: BP 109/55
[2017-06-26 16:36] VITALS: BP 116/53
[2017-06-26 20:00] VITALS: BP 112/55
[2017-06-27] VITALS (7 sets, daily range): BP systolic 112–123; BP diastolic 53–61
[2017-06-27 05:10] LABS: HEMATOCRIT 33.7 % (42.0-52.0); HEMOGLOBIN 11.2 gm/dL (14.0-18.0); MCH 31.2 pg (26.0-34.0); MCHC 33.4 g/dL (28.0-37.0); MCV 93.6 fL (80.0-100.0); MPV 12.2 fl. (7.2-11.1); RDW-CV 14.3 % (10.5-14.5); WBC 8.3 thou/uL (4.0-11.0)
[2017-06-27 06:08] LABS: PLATELET COUNT* 36 thou/uL (150-400)
[2017-06-27 06:09] LABS: ALBUMIN 1.1 g/dL (3.4-5.0); CALCIUM 7.4 mg/dL (8.5-10.1); CREATININE 1.3 mg/dL (0.6-1.3); POTASSIUM 3.8 mmol/L (3.5-5.1)
[2017-06-27 17:21] LABS: ABSOLUTE LYMPHOCYTES 1.2 thou/uL (0.8-5.3); ABSOLUTE MONOCYTES 0.5 thou/uL (0.0-1.2); ABSOLUTE NEUTROPHILS 6.6 thou/uL (1.6-8.1)
[2017-06-27 17:22] LABS: PLATELET ESTIMATE DECREASED
[2017-06-27 17:29] LABS: LARGE PLATELETS FEW
[2017-06-27 17:54] LABS: APTT 33.1 Seconds (25.0-31.3); INR 1.2
[2017-06-28 03:40] VITALS: BP 115/55
[2017-06-28 05:10] LABS: HEMATOCRIT 31.9 % (42.0-52.0); HEMOGLOBIN 11.4 gm/dL (14.0-18.0); MCHC 35.7 g/dL (28.0-37.0); MCV 89.4 fL (80.0-100.0); MPV 11.4 fl. (7.2-11.1); RBC 3.56 mil/uL (4.50-6.00); RDW-CV 13.9 % (10.5-14.5); WBC 9.5 thou/uL (4.0-11.0)
[2017-06-28 05:16] LABS: CALCIUM 7.5 mg/dL (8.5-10.1); CREATININE 1.3 mg/dL (0.6-1.3); MAGNESIUM 1.9 mg/dL (1.8-2.4); POTASSIUM 3.2 mmol/L (3.5-5.1)
[2017-06-28 08:00] VITALS: BP 129/53
[2017-06-28 13:29] VITALS: BP 118/49
[2017-06-28 16:25] VITALS: BP 112/52
[2017-06-28 20:00] VITALS: BP 114/53
[2017-06-29] VITALS (63 sets, daily range): BP systolic 40–205; BP diastolic 14–168
[2017-06-29 04:11] LABS: ABSOLUTE EOSINOPHILS 0.2 thou/uL (0.0-0.7); ABSOLUTE LYMPHOCYTES 0.7 thou/uL (0.8-5.3); ABSOLUTE MONOCYTES 0.5 thou/uL (0.0-1.2); ABSOLUTE NEUTROPHILS 7.2 thou/uL (1.6-8.1); BASOPHILS 0.2 %; EOSINOPHILS 1.8 %; HEMATOCRIT 33.7 % (42.0-52.0); HEMOGLOBIN 11.2 gm/dL (14.0-18.0); LYMPHOCYTES 8.6 %; MCH 31.4 pg (26.0-34.0); MCHC 33.2 g/dL (28.0-37.0); MONOCYTES 6.2 %; MPV 10.2 fl. (7.2-11.1); NUCLEATED RBCS 0 /100WBC; PLATELET COUNT* 86 thou/uL (150-400); POLYS 83.2 %; RBC 3.56 mil/uL (4.50-6.00); WBC 8.6 thou/uL (4.0-11.0)
[2017-06-29 04:36] LABS: CALCIUM 7.5 mg/dL (8.5-10.1); CREATININE 1.3 mg/dL (0.6-1.3); POTASSIUM 3.7 mmol/L (3.5-5.1)
[2017-06-29 04:39] LABS: MCV 94.7 fL (80.0-100.0)
[2017-06-29 07:09] LABS: BE -9.8 mmol/L (-2 to +3); HCO3 12.6 mmol/L (22.0-26.0); PO2 93.2 mmHg (75.0-100.0); pH 7.431 (7.340-7.450)
[2017-06-29 07:13] LABS: PCO2 19.3 mmHg (35.0-45.0)
[2017-06-29 07:37] LABS: CALCIUM 7.8 mg/dL (8.5-10.1); CREATININE 1.8 mg/dL (0.6-1.3); POTASSIUM 4.2 mmol/L (3.5-5.1)
[2017-06-29 08:08] LABS: HEMOGLOBIN 9.7 gm/dL (14.0-18.0)
[2017-06-29 08:41] LABS: BE -18.8 mmol/L (-2 to +3)
[2017-06-29 08:41] LABS: HEMOGLOBIN 9.5 gm/dL (14.0-18.0)
[2017-06-29 08:42] LABS: HCO3 11.7 mmol/L (22.0-26.0); PO2 148.1 mmHg (75.0-100.0); pH 6.996 (7.340-7.450)
--- NOTE | 2017-06-29 10:06 | S ---
[place] [address] SURGICAL PATH RPT PROCEDURE Name: JAYLEN PORTER Room: [address] IN M.R.#: [id number] Admission: 06/17/17 Date of : 51 Discharge: Report #: [id number] Path Case #: [id number] PATHOLOGY REPORT COLLECTION DATE: 06/27/2017 RECEIVED DATE: 06/28/2017 SUBMITTING PHYS: Dr. Rafael Power MD OTHER PHYS: Dr. Inocencio Littlejohn SPECIMEN(S) RECEIVED: A.Peripheral smear * * * * * * * * * * * * FINAL DIAGNOSIS: Peripheral blood smear: - Mild normocytic anemia and severe thrombocytopenia (see comment). COMMENT: Overall, the peripheral blood has mild normocytic anemia and severe thrombocytopenia. The WBC is within the normal reference range. The WBC differential is without marked abnormalities. The etiology of the findings is unclear based entirely on slide review. Potential causes of normocytic anemia include anemia of chronic disease, treated and/or compensated vitamin and mineral deficiencies, acute blood loss, dilutional and primary bone marrow disorders. Potential causes of thrombocytopenia include immune and non-immune platelet destruction, drug and/or toxic exposures, dilutional and primary bone marrow disorders. Correlation with clinical history and additional laboratory data is recommended. (CLW:sandra; 06/28/2017) PATHOLOGIST: Nelda Mills M.D. REPORT ELECTRONICALLY SIGNED BY: Nelda Mills M.D. DATE/TIME: 06/28/2017 15:43 * * * * * * * * * * * * MICROSCOPIC DESCRIPTION: CBC Data (06/27/2017): WBC 8,300 /uL, RBC 3.60, hemoglobin 11.2 g/dL, hematocrit 33.7%, MCV 93.6 fL, MCH 31.2 pg, MCHC 33.4 g/dL, RDW 14.3%. Platelet count 36,000 /uL. Manual white blood cell differential: segs 80%, lymphs 14%, and monos 6%. Peripheral Blood Smear: Cytomorphological examination of the Allen's stained peripheral blood smear confirms the provided data. Red blood cells show mild normocytic anemia with no significant anisopoikilocytosis. White blood cells are predominantly segmented neutrophils and are without significant dyspoiesis or significant left shift[place] [address] SURGICAL PATH RPT PROCEDURE Name: JAYLEN PORTER Room: [address] IN [facility]#: [id number] Admission: 06/17/17 Date of : 51 Discharge: Report #: [id number] Path Case #: [id number] predominantly small, round, and mature appearing with condensed chromatin and scant cytoplasm with admixed large granular lymphocytes and reactive appearing lymphocytes. On scanning, no markedly atypical lymphoid cells are seen. Monocytes are mature. Platelets are moderate to markedly decreased in number and mainly normal in morphology with rare larger platelets noted. (CLW:sandra; 06/28/2017) GROSS PATHOLOGY: Received are three peripheral blood smears (one Allen stained and 2 unstained) all labeled Jaylen Porter. CLINICAL HISTORY: 62-year-old man with anemia and thrombocytopenia. Morphologic review of the peripheral blood smear is requested by the patient's physician. INITIAL CPT CODE(S): A; [place] Professional services performed by [facility] at [facility] [address], [place] [address] Technical services performed by [facility] at [address] [place] [address], [address], [place] [address]. [facility] [address] [place] [address] PHONE: [phone] DIRECTOR: Steve Damon M.D. * * * END OF REPORT * * *
[2017-06-29 10:59] LABS: APTT 42.3 Seconds (25.0-31.3); INR 1.6; PROTIME 15.3 Seconds (9.20-11.50)
[2017-06-29 11:18] LABS: BE -7.3 mmol/L (-2 to +3); HCO3 19.6 mmol/L (22.0-26.0); PCO2 45.3 mmHg (35.0-45.0); PO2 285.4 mmHg (75.0-100.0); pH 7.254 (7.340-7.450)
[2017-06-29 13:49] LABS: HEMATOCRIT 36.7 % (42.0-52.0); MCH 30.9 pg (26.0-34.0); MCHC 32.3 g/dL (28.0-37.0); MCV 95.7 fL (80.0-100.0); MPV 11.8 fl. (7.2-11.1); RBC 3.84 mil/uL (4.50-6.00); RDW-CV 14.7 % (10.5-14.5); WBC 18.3 thou/uL (4.0-11.0)
[2017-06-29 13:51] LABS: HEMOGLOBIN 11.9 gm/dL (14.0-18.0)
[2017-06-30] VITALS (23 sets, daily range): BP systolic 80–132; BP diastolic 40–66
[2017-06-30 05:13] LABS: HEMATOCRIT 31.6 % (42.0-52.0); HEMOGLOBIN 11.1 gm/dL (14.0-18.0); MCH 31.2 pg (26.0-34.0); MCHC 35.2 g/dL (28.0-37.0); MPV 11.5 fl. (7.2-11.1); NUCLEATED RBCS 0 /100WBC; PLATELET COUNT* 62 thou/uL (150-400); RBC 3.57 mil/uL (4.50-6.00); RDW-CV 13.9 % (10.5-14.5); WBC 14.1 thou/uL (4.0-11.0)
[2017-06-30 05:18] LABS: APTT 33.8 Seconds (25.0-31.3); INR 2.1; PROTIME 20.1 Seconds (9.20-11.50)
[2017-06-30 05:34] LABS: MCV 88.5 fL (80.0-100.0)
[2017-06-30 05:45] LABS: ALBUMIN 1.1 g/dL (3.4-5.0); CALCIUM 6.2 mg/dL (8.5-10.1); MAGNESIUM 1.5 mg/dL (1.8-2.4); POTASSIUM 3.4 mmol/L (3.5-5.1); TOTAL BILIRUBIN 1.7 mg/dL (<0.1-1.0); TOTAL PROTEIN 3.9 g/dL (6.4-8.2)
[2017-06-30 05:46] LABS: CREATININE 3.1 mg/dL (0.6-1.3)
[2017-06-30 07:21] LABS: ABSOLUTE LYMPHOCYTES 0.7 thou/uL (0.8-5.3); ABSOLUTE MONOCYTES 0.1 thou/uL (0.0-1.2); ABSOLUTE NEUTROPHILS 13.3 thou/uL (1.6-8.1); PLATELET ESTIMATE DECREASED
[2017-06-30 09:00] LABS: BE 10.3 mmol/L (-2 to +3); HCO3 33.4 mmol/L (22.0-26.0); PO2 67.4 mmHg (75.0-100.0); pH 7.551 (7.340-7.450)
[2017-07-01] VITALS (32 sets, daily range): BP systolic 85–120; BP diastolic 50–69
[2017-07-01 04:48] LABS: PO2 92.9 mmHg (75.0-100.0); pH 7.503 (7.340-7.450)
[2017-07-01 05:50] LABS: ABSOLUTE BASOPHILS 0.1 thou/uL (0.0-0.2); ABSOLUTE EOSINOPHILS 0.1 thou/uL (0.0-0.7); ABSOLUTE LYMPHOCYTES 0.5 thou/uL (0.8-5.3); ABSOLUTE MONOCYTES 0.3 thou/uL (0.0-1.2); BASOPHILS 0.3 %; EOSINOPHILS 0.7 %; HEMATOCRIT 32.6 % (42.0-52.0); HEMOGLOBIN 11.3 gm/dL (14.0-18.0); LYMPHOCYTES 2.9 %; MCH 31.5 pg (26.0-34.0); MCHC 34.7 g/dL (28.0-37.0); MCV 90.7 fL (80.0-100.0); NUCLEATED RBCS 0 /100WBC; PLATELET COUNT* 68 thou/uL (150-400); POLYS 94.1 %; RBC 3.59 mil/uL (4.50-6.00); RDW-CV 14.3 % (10.5-14.5); WBC 15.9 thou/uL (4.0-11.0)
[2017-07-01 06:10] LABS: POTASSIUM 3.5 mmol/L (3.5-5.1); TOTAL BILIRUBIN 2.2 mg/dL (<0.1-1.0); TOTAL PROTEIN 4.1 g/dL (6.4-8.2)
[2017-07-01 06:35] LABS: CREATININE 4.8 mg/dL (0.6-1.3)
[2017-07-01 06:36] LABS: CALCIUM 5.8 mg/dL (8.5-10.1)
[2017-07-02] VITALS (35 sets, daily range): BP systolic 87–135; BP diastolic 44–71
[2017-07-02 05:14] LABS: ABSOLUTE LYMPHOCYTES 0.7 thou/uL (0.8-5.3); ABSOLUTE MONOCYTES 0.3 thou/uL (0.0-1.2); ABSOLUTE NEUTROPHILS 13.1 thou/uL (1.6-8.1); BASOPHILS 0.2 %; EOSINOPHILS 0.2 %; HEMATOCRIT 35.6 % (42.0-52.0); HEMOGLOBIN 12.2 gm/dL (14.0-18.0); MCH 31.4 pg (26.0-34.0); MCHC 34.2 g/dL (28.0-37.0); MCV 91.7 fL (80.0-100.0); MONOCYTES 2.3 %; MPV 10.5 fl. (7.2-11.1); NUCLEATED RBCS 0 /100WBC; PLATELET COUNT* 88 thou/uL (150-400); POLYS 92.3 %; RBC 3.88 mil/uL (4.50-6.00); RDW-CV 14.4 % (10.5-14.5); WBC 14.2 thou/uL (4.0-11.0)
[2017-07-02 05:58] LABS: ALBUMIN 1.1 g/dL (3.4-5.0); POTASSIUM 4.4 mmol/L (3.5-5.1); TOTAL BILIRUBIN 2.8 mg/dL (<0.1-1.0); TOTAL PROTEIN 4.7 g/dL (6.4-8.2)
[2017-07-02 06:05] LABS: CREATININE 6.3 mg/dL (0.6-1.3)
[2017-07-02 06:49] LABS: CALCIUM 5.4 mg/dL (8.5-10.1)
[2017-07-02 11:43] LABS: INR 1.8; PROTIME 17.1 Seconds (9.20-11.50)
[2017-07-02 16:23] LABS: BE 4.8 mmol/L (-2 to +3); HCO3 30.1 mmol/L (22.0-26.0); PCO2 47.1 mmHg (35.0-45.0); PO2 74.7 mmHg (75.0-100.0); pH 7.423 (7.340-7.450)
[2017-07-02 19:43] LABS: URINE BILIRUBIN NEGATIVE (Negative); URINE BLOOD 3+ (Negative); URINE CLARITY CLEAR; URINE COLOR YELLOW; URINE GLUCOSE-RANDOM NEGATIVE (Negative); URINE KETONES NEGATIVE (Negative); URINE LEUKOCYTES-REFLEX NEGATIVE (Negative); URINE NITRITE-REFLEX NEGATIVE (Negative); URINE PROTEIN 2+ (Negative); URINE UROBILINOGEN 0.2 E.U./dl (0.2-1.0)
[2017-07-02 19:54] LABS: BACTERIA-REFLEX 1-9 Few /HPF (None Seen); CASTS None Seen /LPF (None Seen); CRYSTALS None Seen /LPF (None Seen); SQUAMOUS 0-3 Few /LPF (0-3); URINE RBC 3-10 Few /HPF (0-2)
[2017-07-02 19:55] LABS: YEAST-REFLEX Present (None Seen)
[2017-07-02 20:18] LABS: CREATININE 5.5 mg/dL (0.6-1.3); MAGNESIUM 1.9 mg/dL (1.8-2.4); POTASSIUM 4.3 mmol/L (3.5-5.1)
[2017-07-02 20:20] LABS: CALCIUM 5.9 mg/dL (8.5-10.1)
[2017-07-03] VITALS (29 sets, daily range): BP systolic 74–143; BP diastolic 47–68
[2017-07-03 05:17] LABS: HEMATOCRIT 35.8 % (42.0-52.0); HEMOGLOBIN 11.9 gm/dL (14.0-18.0); MCH 31.4 pg (26.0-34.0); MCHC 33.3 g/dL (28.0-37.0); MCV 94.1 fL (80.0-100.0); MPV 9.8 fl. (7.2-11.1); RBC 3.81 mil/uL (4.50-6.00); RDW-CV 14.7 % (10.5-14.5); WBC 4.5 thou/uL (4.0-11.0)
[2017-07-03 05:32] LABS: ALBUMIN 1.5 g/dL (3.4-5.0); CALCIUM 6.9 mg/dL (8.5-10.1); PHOSPHORUS* 7.3 mg/dL (2.5-4.9); POTASSIUM 4.9 mmol/L (3.5-5.1)
[2017-07-03 05:36] LABS: ALBUMIN 1.4 g/dL (3.4-5.0); CALCIUM 6.8 mg/dL (8.5-10.1); MAGNESIUM 1.9 mg/dL (1.8-2.4); POTASSIUM 4.9 mmol/L (3.5-5.1); TOTAL BILIRUBIN 4.2 mg/dL (<0.1-1.0); TOTAL PROTEIN 5.4 g/dL (6.4-8.2)
[2017-07-03 05:41] LABS: CREATININE 4.2 mg/dL (0.6-1.3)
[2017-07-03 05:42] LABS: CREATININE 4.1 mg/dL (0.6-1.3)
[2017-07-03 06:04] LABS: BE 1.6 mmol/L (-2 to +3); HCO3 31.3 mmol/L (22.0-26.0); PO2 95.7 mmHg (75.0-100.0)
[2017-07-03 06:07] LABS: PCO2 78.1 mmHg (35.0-45.0); pH 7.221 (7.340-7.450)
[2017-07-03 08:34] LABS: CALCIUM 6.7 mg/dL (8.5-10.1); MAGNESIUM 1.9 mg/dL (1.8-2.4); PHOSPHORUS* 7.2 mg/dL (2.5-4.9)
[2017-07-03 14:18] LABS: CREATININE 3.5 mg/dL (0.6-1.3); MAGNESIUM 1.9 mg/dL (1.8-2.4); PHOSPHORUS* 6.2 mg/dL (2.5-4.9); POTASSIUM 4.8 mmol/L (3.5-5.1)
[2017-07-03 21:08] LABS: CALCIUM 7.6 mg/dL (8.5-10.1); MAGNESIUM 1.9 mg/dL (1.8-2.4); PHOSPHORUS* 5.2 mg/dL (2.5-4.9); POTASSIUM 4.3 mmol/L (3.5-5.1)
[2017-07-04] VITALS (38 sets, daily range): BP systolic 90–138; BP diastolic 41–58
[2017-07-04 02:57] LABS: CALCIUM 7.6 mg/dL (8.5-10.1); CREATININE 2.6 mg/dL (0.6-1.3); MAGNESIUM 1.8 mg/dL (1.8-2.4); PHOSPHORUS* 4.2 mg/dL (2.5-4.9); POTASSIUM 3.9 mmol/L (3.5-5.1); TOTAL PROTEIN 5.2 g/dL (6.4-8.2)
[2017-07-04 03:54] LABS: RBC 2.24 mil/uL (4.50-6.00); WBC 3.1 thou/uL (4.0-11.0)
[2017-07-04 03:55] LABS: HEMATOCRIT 21.1 % (42.0-52.0); HEMOGLOBIN 7.2 gm/dL (14.0-18.0); MCH 31.9 pg (26.0-34.0); MCHC 33.9 g/dL (28.0-37.0); MPV 9.7 fl. (7.2-11.1); RDW-CV 14.6 % (10.5-14.5)
[2017-07-04 04:36] LABS: APTT 49.2 Seconds (25.0-31.3); INR 1.8; PROTIME 17.4 Seconds (9.20-11.50)
[2017-07-04 05:22] LABS: BE 1.7 mmol/L (-2 to +3); HCO3 27.2 mmol/L (22.0-26.0); PCO2 47.1 mmHg (35.0-45.0); pH 7.379 (7.340-7.450)
[2017-07-04 05:25] LABS: PO2 171.7 mmHg (75.0-100.0)
[2017-07-04 06:40] LABS: HEMOGLOBIN 7.1 gm/dL (14.0-18.0); MCH 31.7 pg (26.0-34.0); MCHC 33.6 g/dL (28.0-37.0); MCV 94.4 fL (80.0-100.0); MPV 9.3 fl. (7.2-11.1); NUCLEATED RBCS 0 /100WBC; RBC 2.22 mil/uL (4.50-6.00); RDW-CV 14.7 % (10.5-14.5); WBC 3.1 thou/uL (4.0-11.0)
[2017-07-04 06:45] LABS: PLATELET COUNT* 12 thou/uL (150-400)
[2017-07-04 07:24] LABS: ABSOLUTE LYMPHOCYTES 0.4 thou/uL (0.8-5.3); ABSOLUTE MONOCYTES 0.1 thou/uL (0.0-1.2); ABSOLUTE NEUTROPHILS 2.5 thou/uL (1.6-8.1); ANISOCYTOSIS 1+; HYPOCHROMASIA 1+; PLATELET ESTIMATE DECREASED; POIKILOCYTOSIS 1+; TOXIC GRANULATION 1+
[2017-07-04 08:17] LABS: CALCIUM 7.9 mg/dL (8.5-10.1); CREATININE 2.2 mg/dL (0.6-1.3); PHOSPHORUS* 3.8 mg/dL (2.5-4.9); POTASSIUM 3.8 mmol/L (3.5-5.1)
[2017-07-04 13:58] LABS: MCH 32.1 pg (26.0-34.0); MCHC 34.2 g/dL (28.0-37.0); MCV 93.8 fL (80.0-100.0); RBC 1.87 mil/uL (4.50-6.00); RDW-CV 14.6 % (10.5-14.5); WBC 2.4 thou/uL (4.0-11.0)
[2017-07-04 14:01] LABS: HEMATOCRIT 17.5 % (42.0-52.0)
[2017-07-04 14:06] LABS: CALCIUM 8.2 mg/dL (8.5-10.1); CREATININE 2.2 mg/dL (0.6-1.3); PHOSPHORUS* 2.9 mg/dL (2.5-4.9); POTASSIUM 3.9 mmol/L (3.5-5.1)
[2017-07-04 14:10] LABS: APTT 43.1 Seconds (25.0-31.3); INR 1.6; PROTIME 15.9 Seconds (9.20-11.50)
[2017-07-04 19:59] LABS: CALCIUM 8.3 mg/dL (8.5-10.1); CREATININE 2.1 mg/dL (0.6-1.3); MAGNESIUM 1.9 mg/dL (1.8-2.4); POTASSIUM 4.3 mmol/L (3.5-5.1)
[2017-07-04 22:11] LABS: HEPATITIS B SURFACE AG Negative (Negative)
[2017-07-05] VITALS (41 sets, daily range): BP systolic 110–175; BP diastolic 46–80
[2017-07-05 04:04] LABS: HEMATOCRIT 20.5 % (42.0-52.0); MCH 31.6 pg (26.0-34.0); MCHC 34.4 g/dL (28.0-37.0); MCV 91.8 fL (80.0-100.0); MPV 9.4 fl. (7.2-11.1); RBC 2.23 mil/uL (4.50-6.00); WBC 3.6 thou/uL (4.0-11.0)
[2017-07-05 04:28] LABS: ALBUMIN 3.4 g/dL (3.4-5.0); CALCIUM 8.1 mg/dL (8.5-10.1); CREATININE 2.3 mg/dL (0.6-1.3); POTASSIUM 4.4 mmol/L (3.5-5.1); TOTAL PROTEIN 5.5 g/dL (6.4-8.2)
[2017-07-05 05:50] LABS: APTT 42.9 Seconds (25.0-31.3); INR 1.7; PROTIME 16.4 Seconds (9.20-11.50)
--- NOTE | 2017-07-05 09:12 | CON ---
[address] [address] CONSULTATION Name: JULIAN SIMS Zonia Room: [address] IN .#: [id number] Admission: 06/17/17 Attend Phys: Bolivar Serrato Discharge: Date of : 51 Report #: [id number] THIS REPORT FOR: //name// CC: MEE physician/PCP Inocencio Mo DATE OF SERVICE: 06/22/2017 REQUESTING PHYSICIAN: Inocencio Mo DO REASON FOR CONSULTATION: Hypernatremia. HISTORY OF PRESENT ILLNESS: The patient is a 61-year-old white male who was admitted to the hospital on 06/17/2017 with complaints of a cough, congestion and shortness of breath for 2 weeks. So, he was admitted with a diagnosis of pneumonia and respiratory acidosis. He also had elevated creatinine of 1.6. His creatinine is getting better and it stayed around 1.2 to 1.3 now, but I was consulted because his serum sodium went up to 165 today. His urine output exceeding intake. He is currently not on any diuretics, but he was on furosemide before I can tell exactly how many doses he received. PAST MEDICAL HISTORY: Significant for pneumonia in the past, apparently had several episodes of pneumonia and usually getting confused with his developing respiratory failure. MEDICATIONS: Reviewed. FAMILY HISTORY: Noncontributory. SOCIAL HISTORY: He has more than [id number] history of smoking. REVIEW OF SYSTEMS: Unobtainable. PHYSICAL EXAMINATION: GENERAL: He is in ICU, confused. He does not follow my commands, does not answer questions. VITAL SIGNS: Blood pressure is 164/77, heart rate 109, respiratory rate 21. HEENT: Pupils are round. NECK: Supple. LUNGS: Clear, few coarse breath sounds. CARDIOVASCULAR: Regular rate. No pericardial rub. ABDOMEN: Soft. LOWER EXTREMITIES: [place] [address] CONSULTATION Name: JULIAN SIMS Room: [address]#: [id number] Admission: 06/17/17 Attend Phys: Bolivar Serrato Discharge: Date of : 51 Report #: [id number] LABORATORY REPORT: White count 10.1 down from 16.1, hemoglobin 12.6, serum sodium 165, it was 156 yesterday, 149 day before yesterday, 136 prior to that. His potassium 3.9, BUN 46, creatinine 1.3. ASSESSMENT: A 61-year-old gentleman admitted with respiratory failure, pneumonia, and developed some hypernatremia. I think he ____ deficits. I would like to switch his IV fluids to D5W at 125 mL of 4 hour. Monitor his sodium intake and outputs. Discussed this case with ICU nurse. Thank you very much for asking my opinion on hypernatremia. <ELECTRONICALLY SIGNED> By: Armaan Kim MD 07/05/17 0912 1129 1629AMD JEWEL Mendoza
[2017-07-05 09:17] LABS: BE 1.5 mmol/L (-2 to +3); HCO3 26.8 mmol/L (22.0-26.0); PCO2 45.9 mmHg (35.0-45.0); PO2 90.5 mmHg (75.0-100.0); pH 7.384 (7.340-7.450)
[2017-07-05 16:23] LABS: HEMATOCRIT 23.8 % (42.0-52.0); HEMOGLOBIN 8.2 gm/dL (14.0-18.0)
[2017-07-05 16:36] LABS: CALCIUM 8.6 mg/dL (8.5-10.1); CREATININE 2.1 mg/dL (0.6-1.3); MAGNESIUM 2.1 mg/dL (1.8-2.4); PHOSPHORUS* 3.5 mg/dL (2.5-4.9); POTASSIUM 4.5 mmol/L (3.5-5.1)
[2017-07-05 22:59] LABS: HEMATOCRIT 23.5 % (42.0-52.0); HEMOGLOBIN 8.1 gm/dL (14.0-18.0); MCH 31.3 pg (26.0-34.0); MCHC 34.2 g/dL (28.0-37.0); MCV 91.5 fL (80.0-100.0); RBC 2.57 mil/uL (4.50-6.00); RDW-CV 16.1 % (10.5-14.5)
[2017-07-05 23:08] LABS: CALCIUM 8.5 mg/dL (8.5-10.1); POTASSIUM 4.3 mmol/L (3.5-5.1)
[2017-07-06] VITALS (38 sets, daily range): BP systolic 113–171; BP diastolic 37–80
[2017-07-06 04:07] LABS: ABSOLUTE EOSINOPHILS 0.1 thou/uL (0.0-0.7); ABSOLUTE LYMPHOCYTES 0.4 thou/uL (0.8-5.3); ABSOLUTE MONOCYTES 0.2 thou/uL (0.0-1.2); BASOPHILS 0.6 %; HEMATOCRIT 23.3 % (42.0-52.0); HEMOGLOBIN 8.1 gm/dL (14.0-18.0); LYMPHOCYTES 9.2 %; MCH 31.8 pg (26.0-34.0); MCHC 34.6 g/dL (28.0-37.0); MONOCYTES 4.3 %; MPV 9.1 fl. (7.2-11.1); NUCLEATED RBCS 0 /100WBC; POLYS 82.9 %; RBC 2.54 mil/uL (4.50-6.00); RDW-CV 15.8 % (10.5-14.5); WBC 4.8 thou/uL (4.0-11.0)
[2017-07-06 04:12] LABS: HEMATOCRIT 23.2 % (42.0-52.0); MCH 31.3 pg (26.0-34.0); MCHC 34.3 g/dL (28.0-37.0); MCV 91.4 fL (80.0-100.0); MPV 9.3 fl. (7.2-11.1); RBC 2.54 mil/uL (4.50-6.00)
[2017-07-06 04:33] LABS: ALBUMIN 2.9 g/dL (3.4-5.0); CALCIUM 8.3 mg/dL (8.5-10.1); CREATININE 1.9 mg/dL (0.6-1.3); POTASSIUM 4.2 mmol/L (3.5-5.1); TOTAL PROTEIN 5.3 g/dL (6.4-8.2)
[2017-07-06 04:49] LABS: APTT 32.9 Seconds (25.0-31.3)
[2017-07-06 05:04] LABS: CALCIUM 8.1 mg/dL (8.5-10.1); CREATININE 1.8 mg/dL (0.6-1.3); MAGNESIUM 1.9 mg/dL (1.8-2.4); PHOSPHORUS* 2.5 mg/dL (2.5-4.9); POTASSIUM 4.3 mmol/L (3.5-5.1)
[2017-07-06 05:23] LABS: PLATELET COUNT* 35 thou/uL (150-400)
[2017-07-06 05:51] LABS: INR 1.5; PROTIME 14.6 Seconds (9.20-11.50)
[2017-07-06 08:41] LABS: BE 0 mmol/L (-2 to +3); HCO3 27.4 mmol/L (22.0-26.0); PO2 68.2 mmHg (75.0-100.0); pH 7.287 (7.340-7.450)
[2017-07-06 08:42] LABS: PCO2 58.7 mmHg (35.0-45.0)
[2017-07-06 10:19] LABS: HEMATOCRIT 26.3 % (42.0-52.0); MCH 31.4 pg (26.0-34.0); MCHC 34.1 g/dL (28.0-37.0); MCV 92.2 fL (80.0-100.0); MPV 9.9 fl. (7.2-11.1); RBC 2.85 mil/uL (4.50-6.00); RDW-CV 16.2 % (10.5-14.5)
[2017-07-06 10:26] LABS: CALCIUM 8.3 mg/dL (8.5-10.1); CREATININE 1.7 mg/dL (0.6-1.3); MAGNESIUM 1.9 mg/dL (1.8-2.4); PHOSPHORUS* 2.3 mg/dL (2.5-4.9); POTASSIUM 4.1 mmol/L (3.5-5.1)
[2017-07-06 12:20] LABS: HEMATOCRIT 26.5 % (42.0-52.0); MCH 31.3 pg (26.0-34.0); MCHC 33.9 g/dL (28.0-37.0); MCV 92.6 fL (80.0-100.0); MPV 9.9 fl. (7.2-11.1); RBC 2.87 mil/uL (4.50-6.00); RDW-CV 16.1 % (10.5-14.5); WBC 4.6 thou/uL (4.0-11.0)
[2017-07-06 12:33] LABS: CALCIUM 8.2 mg/dL (8.5-10.1); CREATININE 1.6 mg/dL (0.6-1.3); MAGNESIUM 1.8 mg/dL (1.8-2.4); POTASSIUM 4.2 mmol/L (3.5-5.1)
[2017-07-06 16:21] LABS: HEMATOCRIT 25.7 % (42.0-52.0); HEMOGLOBIN 8.7 gm/dL (14.0-18.0); MCH 31.4 pg (26.0-34.0); MCV 92.2 fL (80.0-100.0); MPV 9.7 fl. (7.2-11.1); RBC 2.79 mil/uL (4.50-6.00); RDW-CV 16.2 % (10.5-14.5); WBC 4.3 thou/uL (4.0-11.0)
--- NOTE | 2017-07-06 16:21 | EKG ---
[place] [address] ELECTROCARDIOGRAM REPORT Name: JULIAN SIMS Room: [address] ADM IN .R.#: [id number] Admission: 06/17/17 Attend Phys: Bolivar Serrato Discharge: Date of : 51 Report #: [id number] THIS REPORT FOR: //name// [facility] Test Date: 2017-07-05 Test Time: 16:56:26 Pat Name: JULIAN SIMS Department: Room: [address] Gender: M Tube Trailer Filler: . : 1955 Requested By: Inocencio Mo Order Number: [id number] Ivan MD: Car Kothari Measurements Intervals [place] Rate: 56 P: 64 [place]: 137 QRS: 65 QRSD: 96 T: 65 QT: 504 QTc: 487 Interpretive Statements Sinus rhythm Probable left ventricular hypertrophy Borderline prolonged QT interval Compared to ECG 06/18/2017 08:08:53 Atrial fibrillation no longer present Electronically Signed On 07-06-2017 16:21:05 INSTRUCTOR BALLROOM DANCING by Car Kothari [email or web address] <ELECTRONICALLY SIGNED> By: Car Kothari MD, [facility] 07/06/17 1621 1656 1656 Car Kothari MD, [facility] /EPI
[2017-07-06 16:30] LABS: CALCIUM 8.1 mg/dL (8.5-10.1); CREATININE 1.7 mg/dL (0.6-1.3); MAGNESIUM 1.8 mg/dL (1.8-2.4); PHOSPHORUS* 2.5 mg/dL (2.5-4.9); POTASSIUM 4.5 mmol/L (3.5-5.1)
[2017-07-06 19:53] LABS: HEMATOCRIT 25.8 % (42.0-52.0); HEMOGLOBIN 8.8 gm/dL (14.0-18.0); MCH 31.3 pg (26.0-34.0); MCHC 33.9 g/dL (28.0-37.0); MCV 92.5 fL (80.0-100.0); MPV 9.7 fl. (7.2-11.1); RBC 2.8 mil/uL (4.50-6.00); RDW-CV 15.7 % (10.5-14.5); WBC 4.3 thou/uL (4.0-11.0)
[2017-07-06 20:07] LABS: CALCIUM 8.2 mg/dL (8.5-10.1); CREATININE 1.7 mg/dL (0.6-1.3); MAGNESIUM 1.9 mg/dL (1.8-2.4); PHOSPHORUS* 2.7 mg/dL (2.5-4.9); POTASSIUM 4.8 mmol/L (3.5-5.1)
[2017-07-06 23:34] LABS: HEMATOCRIT 26.1 % (42.0-52.0); MCH 31.9 pg (26.0-34.0); MCHC 34.3 g/dL (28.0-37.0); MCV 93.1 fL (80.0-100.0); MPV 10.8 fl. (7.2-11.1); RBC 2.81 mil/uL (4.50-6.00); RDW-CV 16.2 % (10.5-14.5); WBC 4.4 thou/uL (4.0-11.0)
[2017-07-06 23:40] LABS: CALCIUM 8.2 mg/dL (8.5-10.1); CREATININE 1.6 mg/dL (0.6-1.3); MAGNESIUM 1.9 mg/dL (1.8-2.4); PHOSPHORUS* 2.6 mg/dL (2.5-4.9); POTASSIUM 4.8 mmol/L (3.5-5.1)
[2017-07-07] VITALS (22 sets, daily range): BP systolic 105–170; BP diastolic 53–83
[2017-07-07 01:02] LABS: CALCIUM 8.4 mg/dL (8.5-10.1); CREATININE 1.6 mg/dL (0.6-1.3); MAGNESIUM 1.9 mg/dL (1.8-2.4); PHOSPHORUS* 2.6 mg/dL (2.5-4.9); POTASSIUM 4.8 mmol/L (3.5-5.1)
[2017-07-07 05:03] LABS: CALCIUM 8.3 mg/dL (8.5-10.1); CREATININE 1.8 mg/dL (0.6-1.3); MAGNESIUM 1.9 mg/dL (1.8-2.4); POTASSIUM 4.9 mmol/L (3.5-5.1)
--- NOTE | 2017-07-07 16:13 | CON ---
[address] [address] CONSULTATION Name: LEVIJULIAN L Room: [address] IN M.R.#: [id number] Admission: 06/17/17 Attend Phys: Bolivar Serrato Discharge: Date of : 51 Report #: [id number] THIS REPORT FOR: //name// CC: MEE physician/PCP Inocencio Mo DATE OF SERVICE: 06/29/2017 ADDENDUM TO CONSULTATION CONSULTATION NUMBER: [id number]. I have personally seen and examined the patient and reviewed labs and imaging. I also spent time and talk to patient's son and answered all his questions. The patient with acute GI bleed, who dropped his hemoglobin to 9. He has received 4 units of packed RBC and his hemoglobin is 11. The last study, angiogram did not show any active bleeding. He is comfortably lying, intubated and there is no further evidence of rectal bleeding or any blood per NG tube. The patient also has history of respiratory failure and was initially intubated. He has had thrombocytopenia, metabolic acidosis and has had coded 3 times today. We will closely watch him as he is on 2 pressors and they are being tapered down. We would avoid any kind of anticoagulation therapy. Once the patient is stabilized, we will consider upper endoscopy to further evaluate his GI bleed. <ELECTRONICALLY SIGNED> By: Dulce Nam MD 07/07/17 1613 1537 2143Dulce Nam MD /silvano
--- NOTE | 2017-07-07 16:13 | CON ---
[address] [address] CONSULTATION Name: MEHRANELLENJULIAN L Room: [address] IN .R.#: [id number] Admission: 06/17/17 Attend Phys: Bolivar Serrato Discharge: Date of : 51 Report #: [id number] THIS REPORT FOR: //name// CC: MEE physician/PCP Inocencio oM DICTATED BY: Jane Sharma [facility] DATE OF SERVICE: 06/29/2017 The patient does not have a PCP. Please note at the time of this dictation, the patient was seen and physically examined by myself. REASON FOR CONSULTATION: Acute GI bleed. HISTORY OF PRESENT ILLNESS: This 62-year-old male who was admitted initially to the hospital with atrial flutter with rapid ventricular response, pneumonia and having sepsis with MSSA bacteremia. He has been on antibiotics and IV steroids and then has subsequently developed acute thrombocytopenia, which Dr. Power of Hematology is seeing. It is felt that due to the antibiotics, both nafcillin and rifampin may have caused his thrombocytopenia. When he was admitted, his platelets was 112 and it has dropped to as low as 36. The patient's hemoglobin has been running stable between 11 and 12 until he had respiratory distress and arrested this morning early a.m. and after his arrest, he was noted to have a very large maroon stool with clots in it and his hemoglobin at that time had dropped to 9.5 from 11.2 the day before. His lactic acid level was 9.5 and he has been getting transfused. He is getting his fourth unit of blood at this time. The patient during his arrest, he arrested 3 times, ____ and he is currently on the ventilator and is in severe metabolic acidosis at this time. ALLERGIES: No known drug allergies. MEDICATIONS FROM HOME: None. PAST MEDICAL HISTORY: None. PAST SURGICAL HISTORY: Negative. FAMILY HISTORY: Paternal mother had part of her intestines removed, but for what reason, we are unable to obtain. SOCIAL HISTORY: He quit smoking prior to his admission. Denies any alcohol use. He smokes 1 pack per day for the last 40 years and denies any illegal drug use at this time. REVIEW OF SYSTEMS: Twelve-point review [place] [address] CONSULTATION Name: JULIAN SIMS Room: [address]#: [id number] Admission: 06/17/17 Attend Phys: Bolivar Serrato Discharge: Date of : 51 Report #: [id number] except what is mentioned in the HPI. PHYSICAL EXAMINATION: VITAL SIGNS: Temperature 36.6, pulse 112, respirations 16, blood pressure is 70/33. HEART: Irregular rhythm, tachycardic. LUNGS: Diminished bilaterally. ABDOMEN: Soft, positive bowel sounds in all 4 quadrants with no masses or tenderness noted. SKIN: Numerous bruising noted of extremities. LABORATORY DATA: Hemoglobin again this morning 9.5, hematocrit 31, white count is 8.6, platelets again is 86. Sodium 132, potassium 4.2, chloride 103, CO2 14, BUN is 16, creatinine is 1.8, GFR is 38 and glucose is 207. PT is 15.3, INR is 1.6. LFTs back on 06/23/2017. His bilirubin was up to 3.6. He is now down within normal range on all of his LFTs. IMPRESSION: 1. Acute anemia. 2. Gastrointestinal bleed, likely lower. 3. Post-arrest x 3. 4. Respiratory failure secondary to severe metabolic acidosis and intubated. 5. Thrombocytopenia. PLAN: 1. CT angio now to check for active bleeding. 2. Monitor his H and H and transfuse as needed. 3. We will await above results. 4. The patient is currently unstable to perform any endoscopy studies and will wait to see what the results of CT angio shows. Thank you for allowing us to participate in this patient's care. Please do not hesitate to call with any questions in regard to this consult. <ELECTRONICALLY SIGNED> By: Dulce Nam MD 07/07/17 1613 1218 1246Dulce Nam MD /nt
[2017-07-08] VITALS (25 sets, daily range): BP systolic 113–170; BP diastolic 49–68
[2017-07-08 01:57] LABS: CALCIUM 8.2 mg/dL (8.5-10.1); MAGNESIUM 1.9 mg/dL (1.8-2.4); PHOSPHORUS* 2.8 mg/dL (2.5-4.9)
[2017-07-08 04:53] LABS: HEMATOCRIT 28.5 % (42.0-52.0); HEMOGLOBIN 9.7 gm/dL (14.0-18.0); MCH 31.5 pg (26.0-34.0); MCHC 34.2 g/dL (28.0-37.0); MCV 92.1 fL (80.0-100.0); MPV 11.7 fl. (7.2-11.1); RBC 3.09 mil/uL (4.50-6.00); WBC 8.8 thou/uL (4.0-11.0)
[2017-07-08 05:07] LABS: ALBUMIN 2.3 g/dL (3.4-5.0); CALCIUM 8.2 mg/dL (8.5-10.1); CREATININE 2.3 mg/dL (0.6-1.3); POTASSIUM 4.8 mmol/L (3.5-5.1); TOTAL BILIRUBIN 2.6 mg/dL (<0.1-1.0); TOTAL PROTEIN 5.2 g/dL (6.4-8.2)
[2017-07-08 05:13] LABS: CALCIUM 8.2 mg/dL (8.5-10.1); PHOSPHORUS* 3.4 mg/dL (2.5-4.9)
[2017-07-09] VITALS (16 sets, daily range): BP systolic 112–156; BP diastolic 47–69
[2017-07-09 04:11] LABS: HEMATOCRIT 24.5 % (42.0-52.0); HEMOGLOBIN 8.3 gm/dL (14.0-18.0); MCH 31.5 pg (26.0-34.0); MCHC 33.7 g/dL (28.0-37.0); MCV 93.6 fL (80.0-100.0); MPV 10.7 fl. (7.2-11.1); RBC 2.62 mil/uL (4.50-6.00); RDW-CV 16.2 % (10.5-14.5); WBC 8.5 thou/uL (4.0-11.0)
[2017-07-09 04:31] LABS: ALBUMIN 1.9 g/dL (3.4-5.0); CALCIUM 8.2 mg/dL (8.5-10.1); CREATININE 3.6 mg/dL (0.6-1.3); POTASSIUM 5.5 mmol/L (3.5-5.1); TOTAL BILIRUBIN 1.7 mg/dL (<0.1-1.0); TOTAL PROTEIN 4.9 g/dL (6.4-8.2)
[2017-07-09 04:49] LABS: MAGNESIUM 2.2 mg/dL (1.8-2.4); PHOSPHORUS* 4.9 mg/dL (2.5-4.9)
[2017-07-10] VITALS (14 sets, daily range): BP systolic 126–174; BP diastolic 54–93
[2017-07-10 04:59] LABS: HEMATOCRIT 26.3 % (42.0-52.0); HEMOGLOBIN 8.7 gm/dL (14.0-18.0); MCH 30.7 pg (26.0-34.0); MCHC 32.9 g/dL (28.0-37.0); MCV 93.1 fL (80.0-100.0); MPV 10.2 fl. (7.2-11.1); RBC 2.82 mil/uL (4.50-6.00); RDW-CV 16.1 % (10.5-14.5); WBC 13.1 thou/uL (4.0-11.0)
[2017-07-10 05:06] LABS: CALCIUM 8.1 mg/dL (8.5-10.1); CREATININE 3.2 mg/dL (0.6-1.3); POTASSIUM 5.1 mmol/L (3.5-5.1)
[2017-07-11] VITALS (9 sets, daily range): BP systolic 113–150; BP diastolic 54–72
[2017-07-11 05:36] LABS: HEMATOCRIT 25.6 % (42.0-52.0); HEMOGLOBIN 8.5 gm/dL (14.0-18.0); MCH 30.8 pg (26.0-34.0); MCHC 33.3 g/dL (28.0-37.0); MCV 92.6 fL (80.0-100.0); MPV 10.1 fl. (7.2-11.1); RBC 2.76 mil/uL (4.50-6.00); RDW-CV 16.1 % (10.5-14.5); WBC 14.5 thou/uL (4.0-11.0)
[2017-07-11 05:52] LABS: CALCIUM 8.2 mg/dL (8.5-10.1); CREATININE 3.2 mg/dL (0.6-1.3); MAGNESIUM 2.2 mg/dL (1.8-2.4); POTASSIUM 4.4 mmol/L (3.5-5.1)
[2017-07-12 04:06] VITALS: BP 145/71
[2017-07-12 05:34] LABS: HEMOGLOBIN 8.4 gm/dL (14.0-18.0); MCHC 33.5 g/dL (28.0-37.0); MCV 92.5 fL (80.0-100.0); MPV 10.5 fl. (7.2-11.1); NUCLEATED RBCS 0 /100WBC; PLATELET COUNT* 98 thou/uL (150-400); RDW-CV 16.4 % (10.5-14.5); WBC 14.3 thou/uL (4.0-11.0)
[2017-07-12 06:13] LABS: ALBUMIN 2.1 g/dL (3.4-5.0); CREATININE 4.4 mg/dL (0.6-1.3); MAGNESIUM 2.2 mg/dL (1.8-2.4); POTASSIUM 4.6 mmol/L (3.5-5.1); TOTAL PROTEIN 5.5 g/dL (6.4-8.2)
[2017-07-12 07:07] LABS: ABSOLUTE LYMPHOCYTES 0.3 thou/uL (0.8-5.3); ATYPICAL LYMPHS 1 %
[2017-07-12 07:08] LABS: PLATELET ESTIMATE DECREASED
[2017-07-12 10:00] VITALS: BP 126/62
[2017-07-12 11:46] VITALS: BP 143/67
[2017-07-12 16:00] VITALS: BP 141/62
[2017-07-12 19:40] VITALS: BP 129/52
[2017-07-13] VITALS: BP 146/59
[2017-07-13 03:31] LABS: BE -2.3 mmol/L (-2 to +3); HCO3 22.7 mmol/L (22.0-26.0); PO2 103.2 mmHg (75.0-100.0); pH 7.372 (7.340-7.450)
[2017-07-13 04:00] VITALS: BP 136/52
[2017-07-13 04:12] LABS: HEMATOCRIT 25.7 % (42.0-52.0); HEMOGLOBIN 8.6 gm/dL (14.0-18.0); MCH 30.7 pg (26.0-34.0); MCHC 33.4 g/dL (28.0-37.0); MCV 91.8 fL (80.0-100.0); MPV 11.1 fl. (7.2-11.1); RBC 2.8 mil/uL (4.50-6.00); RDW-CV 16.7 % (10.5-14.5); WBC 14.1 thou/uL (4.0-11.0)
[2017-07-13 04:27] LABS: CALCIUM 7.4 mg/dL (8.5-10.1); CREATININE 5.1 mg/dL (0.6-1.3); MAGNESIUM 2.3 mg/dL (1.8-2.4)
[2017-07-13 10:13] VITALS: BP 121/55
[2017-07-13 13:00] VITALS: BP 117/55
[2017-07-13 16:00] VITALS: BP 114/54
[2017-07-13 20:40] VITALS: BP 140/63
[2017-07-14] VITALS (7 sets, daily range): BP systolic 95–142; BP diastolic 45–75
[2017-07-14 01:13] LABS: HEMATOCRIT 27.5 % (42.0-52.0); HEMOGLOBIN 9.2 gm/dL (14.0-18.0); MCH 30.9 pg (26.0-34.0); MCHC 33.5 g/dL (28.0-37.0); MCV 92.3 fL (80.0-100.0); MPV 11.2 fl. (7.2-11.1); RBC 2.98 mil/uL (4.50-6.00); RDW-CV 16.1 % (10.5-14.5); WBC 15.2 thou/uL (4.0-11.0)
[2017-07-14 10:57] LABS: CALCIUM 7.5 mg/dL (8.5-10.1); CREATININE 4.1 mg/dL (0.6-1.3); POTASSIUM 4.6 mmol/L (3.5-5.1)
[2017-07-15] VITALS: BP 126/55
[2017-07-15 04:20] VITALS: BP 137/54
[2017-07-15 06:57] LABS: CREATININE 2.9 mg/dL (0.6-1.3); PHOSPHORUS* 6.6 mg/dL (2.5-4.9); POTASSIUM 4.4 mmol/L (3.5-5.1)
[2017-07-15 08:45] VITALS: BP 129/55
[2017-07-15 11:25] VITALS: BP 121/57
[2017-07-15 13:19] LABS: % SATURATION 14 % (20-39); IRON 17 ug/dL (50-175)
[2017-07-15 15:50] VITALS: BP 122/44
[2017-07-15 20:00] VITALS: BP 117/44
[2017-07-16 00:28] VITALS: BP 149/43
[2017-07-16 04:33] VITALS: BP 151/51
[2017-07-16 06:03] LABS: CALCIUM 7.7 mg/dL (8.5-10.1); CREATININE 3.5 mg/dL (0.6-1.3); MAGNESIUM 1.9 mg/dL (1.8-2.4); POTASSIUM 4.7 mmol/L (3.5-5.1)
[2017-07-16 07:30] VITALS: BP 130/50
[2017-07-16 12:00] VITALS: BP 115/64
[2017-07-16 15:08] LABS: CALCIUM 8.1 mg/dL (8.5-10.1); POTASSIUM 4.4 mmol/L (3.5-5.1)
[2017-07-16 15:09] LABS: CREATININE 2.1 mg/dL (0.6-1.3)
[2017-07-16 16:00] VITALS: BP 86/43
[2017-07-16 18:20] VITALS: BP 98/51
[2017-07-17] VITALS (10 sets, daily range): BP systolic 89–118; BP diastolic 45–62
[2017-07-17 05:54] LABS: CALCIUM 7.8 mg/dL (8.5-10.1); CREATININE 2.6 mg/dL (0.6-1.3); MAGNESIUM 1.6 mg/dL (1.8-2.4); PHOSPHORUS* 6.1 mg/dL (2.5-4.9); POTASSIUM 4.4 mmol/L (3.5-5.1)
--- NOTE | 2017-07-17 16:39 | EKG ---
[place] [address] ELECTROCARDIOGRAM REPORT Name: JULIAN SIMS Room: [address] ADM IN .R.#: [id number] Admission: 06/17/17 Attend Phys: Bolivar Serrato Discharge: Date of : 51 Report #: [id number] THIS REPORT FOR: //name// [facility] Test Date: 2017-07-17 Test Time: 09:22:13 Pat Name: JULIAN SIMS Department: Room: [address] Gender: M Central Supply Worker: CARINA : 1955 Requested By: Iasbel More Order Number: [id number] Ivan MD: Juliano Urbano Measurements Intervals [place] Rate: 143 P: [place]: QRS: 66 QRSD: 81 T: 263 QT: 282 QTc: 435 Interpretive Statements Atrial fibrillation with rapid V-rate LVH with secondary repolarization abnormality Posterior infarct, acute (LCx) Compared to ECG 07/05/2017 16:56:26 Early repolarization now present Myocardial infarct finding now present Sinus rhythm no longer present Electronically Signed On 07-17-2017 16:39:41 PATENT LAW SPECIALIST by Juliano Urbano [email or web address] <ELECTRONICALLY SIGNED> By: Loly Urbano MD, [facility] 07/17/17 1639 1 1 Loly Urbano MD, [facility] /EPI
[2017-07-18 00:27] VITALS: BP 97/53
[2017-07-18 03:58] VITALS: BP 101/38
[2017-07-18 05:58] LABS: ALBUMIN 1.9 g/dL (3.4-5.0); CALCIUM 7.9 mg/dL (8.5-10.1); CREATININE 3.3 mg/dL (0.6-1.3); POTASSIUM 4.6 mmol/L (3.5-5.1); TOTAL BILIRUBIN 1.6 mg/dL (<0.1-1.0); TOTAL PROTEIN 5.1 g/dL (6.4-8.2)
[2017-07-18 11:15] VITALS: BP 100/38
[2017-07-18 16:00] VITALS: BP 115/45
[2017-07-18 20:00] VITALS: BP 165/79
[2017-07-19 00:30] VITALS: BP 120/55
[2017-07-19 04:38] VITALS: BP 116/52
[2017-07-19 05:28] LABS: HEMATOCRIT 24.9 % (42.0-52.0); HEMOGLOBIN 8.4 gm/dL (14.0-18.0); MCH 31.3 pg (26.0-34.0); MCHC 33.8 g/dL (28.0-37.0); MCV 92.6 fL (80.0-100.0); MPV 11.1 fl. (7.2-11.1); RBC 2.69 mil/uL (4.50-6.00); RDW-CV 16.1 % (10.5-14.5); WBC 6.1 thou/uL (4.0-11.0)
[2017-07-19 06:01] LABS: ALBUMIN 1.9 g/dL (3.4-5.0); CALCIUM 8.1 mg/dL (8.5-10.1); CREATININE 3.5 mg/dL (0.6-1.3); POTASSIUM 4.4 mmol/L (3.5-5.1); TOTAL BILIRUBIN 1.4 mg/dL (<0.1-1.0); TOTAL PROTEIN 5.3 g/dL (6.4-8.2)
[2017-07-19 11:19] LABS: CREATININE 3.3 mg/dL (0.6-1.3); POTASSIUM 4.5 mmol/L (3.5-5.1)
[2017-07-19 12:00] VITALS: BP 122/56
[2017-07-19 19:40] VITALS: BP 112/56
[2017-07-20 00:30] VITALS: BP 109/50
[2017-07-20 04:30] VITALS: BP 114/48
[2017-07-20 06:31] LABS: ALBUMIN 1.7 g/dL (3.4-5.0); CALCIUM 7.7 mg/dL (8.5-10.1); POTASSIUM 4.3 mmol/L (3.5-5.1); TOTAL BILIRUBIN 1.4 mg/dL (<0.1-1.0); TOTAL PROTEIN 5.3 g/dL (6.4-8.2)
[2017-07-20 06:32] LABS: CREATININE 2.1 mg/dL (0.6-1.3)
[2017-07-20 08:00] VITALS: BP 124/54
[2017-07-20 11:55] VITALS: BP 97/41
[2017-07-20 16:06] VITALS: BP 97/43
[2017-07-20 20:00] VITALS: BP 94/36
[2017-07-21] VITALS: BP 97/45
[2017-07-21 04:04] VITALS: BP 105/47
[2017-07-21 05:58] LABS: CALCIUM 7.4 mg/dL (8.5-10.1); CREATININE 2.4 mg/dL (0.6-1.3); POTASSIUM 4.2 mmol/L (3.5-5.1)
[2017-07-21 08:00] VITALS: BP 111/47
[2017-07-21 12:00] VITALS: BP 97/41
[2017-07-21 15:23] VITALS: BP 104/44
[2017-07-21 20:00] VITALS: BP 90/43
[2017-07-22] VITALS: BP 101/46
[2017-07-22 03:38] LABS: CALCIUM 7.4 mg/dL (8.5-10.1); CREATININE 2.6 mg/dL (0.6-1.3); POTASSIUM 4.3 mmol/L (3.5-5.1)
[2017-07-22 04:00] VITALS: BP 111/47
[2017-07-22 08:00] VITALS: BP 83/43
[2017-07-22 12:00] VITALS: BP 102/48
[2017-07-22 15:00] LABS: HEMATOCRIT 25.7 % (42.0-52.0); HEMOGLOBIN 8.5 gm/dL (14.0-18.0); MCH 30.3 pg (26.0-34.0); MCHC 33.3 g/dL (28.0-37.0); MCV 91.1 fL (80.0-100.0); MPV 11.2 fl. (7.2-11.1); NUCLEATED RBCS 0 /100WBC; RBC 2.81 mil/uL (4.50-6.00); RDW-CV 16.4 % (10.5-14.5); WBC 8.9 thou/uL (4.0-11.0)
[2017-07-22 15:07] LABS: PLATELET COUNT* 39 thou/uL (150-400)
[2017-07-22 15:22] LABS: ABSOLUTE LYMPHOCYTES 0.4 thou/uL (0.8-5.3); ABSOLUTE MONOCYTES 0.4 thou/uL (0.0-1.2); ABSOLUTE NEUTROPHILS 8.1 thou/uL (1.6-8.1); ATYPICAL LYMPHS 2 %
[2017-07-22 15:23] LABS: PLATELET ESTIMATE ADEQUATE
[2017-07-22 16:00] VITALS: BP 90/54
--- NOTE | 2017-07-22 17:19 | EKG ---
[place] [address] ELECTROCARDIOGRAM REPORT Name: JULIAN SIMS Room: [address] ADM IN .R.#: [id number] Admission: 06/17/17 Attend Phys: Bolivar Serrato Discharge: Date of : 51 Report #: [id number] THIS REPORT FOR: //name// [facility] Test Date: 2017-07-22 Test Time: 13:17:14 Pat Name: JULIAN SIMS Department: Room: [address] Gender: M Cricket Coach: YURIY : 1955 Requested By: Yen Berger Order Number: [id number] Ivan MD: Car Kothari Measurements Intervals [place] Rate: 105 P: 78 [place]: 133 QRS: 75 QRSD: 87 T: 58 QT: 336 QTc: 445 Interpretive Statements Sinus tachycardia Right atrial enlargement Consider left ventricular hypertrophy Compared to ECG 07/17/2017 09:22:13 Atrial abnormality now present Atrial fibrillation no longer present Early repolarization no longer present Myocardial infarct finding no longer present Electronically Signed On 07-22-2017 17:19:08 ROOF TECHNICIAN by Car Kothari [email or web address] <ELECTRONICALLY SIGNED> By: Car Kotahri MD, FAC 07/22/17 1719 1317 1317 Car Kothari MD, FAC /EPI
[2017-07-23] VITALS: BP 122/58
[2017-07-23 04:00] VITALS: BP 115/55
[2017-07-23 05:30] LABS: CALCIUM 7.6 mg/dL (8.5-10.1); CREATININE 2.2 mg/dL (0.6-1.3); POTASSIUM 3.8 mmol/L (3.5-5.1)
[2017-07-23 07:00] VITALS: BP 110/41
[2017-07-23 12:00] VITALS: BP 135/86
[2017-07-23 20:00] VITALS: BP 91/46
[2017-07-24] VITALS (7 sets, daily range): BP systolic 72–149; BP diastolic 36–83
[2017-07-24 08:08] LABS: CALCIUM 7.8 mg/dL (8.5-10.1); CREATININE 2.8 mg/dL (0.6-1.3); POTASSIUM 4.3 mmol/L (3.5-5.1)
[2017-07-25] VITALS: BP 76/40
[2017-07-25 01:25] VITALS: BP 76/40
== END 2017-07-24 23:29 | DRG 870 ==
LOC: M.ERS 10:57 → M.TBA-ER 12:50 → M.ICU 12:50 → M.2W 06-25 16:31 → M.ICU 06-29 07:53 → M.2W 07-11 17:56
PROVIDERS: Emergency Medicine; Family Medicine; Internal Medicine; Internal Medicine Cardiovascular Disease; Internal Medicine Critical Care Medicine; Internal Medicine Hematology & Oncology; Internal Medicine Nephrology; Internal Medicine Pulmonary Disease; Specialist; ADMIT Internal Medicine
PROC: 5A09557 Assistance with Respiratory Ventilation, Greater than 96 Consecutive Hours, Continuous Positive Airway Pressure (ICD-10-PCS; 2017-06-17)
PROC: 0BH17EZ Insertion of Endotracheal Airway into Trachea, Via Natural or Artificial Opening (ICD-10-PCS; principal; 2017-06-29)
PROC: 5A1955Z Respiratory Ventilation, Greater than 96 Consecutive Hours (ICD-10-PCS; principal; 2017-06-29)
PROC: 30233L1 Transfusion of Nonautologous Fresh Plasma into Peripheral Vein, Percutaneous Approach (ICD-10-PCS; 2017-06-29)
PROC: 30233N1 Transfusion of Nonautologous Red Blood Cells into Peripheral Vein, Percutaneous Approach (ICD-10-PCS; 2017-06-29)
PROC: 30233K1 Transfusion of Nonautologous Frozen Plasma into Peripheral Vein, Percutaneous Approach (ICD-10-PCS; 2017-06-29)
PROC: 30233R1 Transfusion of Nonautologous Platelets into Peripheral Vein, Percutaneous Approach (ICD-10-PCS; 2017-06-29)
PROC: 02HV33Z Insertion of Infusion Device into Superior Vena Cava, Percutaneous Approach (ICD-10-PCS; 2017-07-02)
PROC: B548ZZA Ultrasonography of Superior Vena Cava, Guidance (ICD-10-PCS; 2017-07-02)
PROC: 5A1D90Z Performance of Urinary Filtration, Continuous, Greater than 18 hours Per Day (ICD-10-PCS; 2017-07-02)
PROC: 5A1D70Z Performance of Urinary Filtration, Intermittent, Less than 6 Hours Per Day (ICD-10-PCS; 2017-07-09)
PROC: 5A1D70Z Performance of Urinary Filtration, Intermittent, Less than 6 Hours Per Day (ICD-10-PCS; 2017-07-10)
PROC: 5A1D70Z Performance of Urinary Filtration, Intermittent, Less than 6 Hours Per Day (ICD-10-PCS; 2017-07-13)
PROC: B5181ZA Fluoroscopy of Superior Vena Cava using Low Osmolar Contrast, Guidance (ICD-10-PCS; 2017-07-14)
PROC: B548ZZA Ultrasonography of Superior Vena Cava, Guidance (ICD-10-PCS; 2017-07-14)
PROC: 02HV33Z Insertion of Infusion Device into Superior Vena Cava, Percutaneous Approach (ICD-10-PCS; 2017-07-14)
PROC: 5A1D70Z Performance of Urinary Filtration, Intermittent, Less than 6 Hours Per Day (ICD-10-PCS; 2017-07-14)
PROC: 5A1D70Z Performance of Urinary Filtration, Intermittent, Less than 6 Hours Per Day (ICD-10-PCS; 2017-07-16)
PROC: 5A1D70Z Performance of Urinary Filtration, Intermittent, Less than 6 Hours Per Day (ICD-10-PCS; 2017-07-19)
PROC: 5A1D70Z Performance of Urinary Filtration, Intermittent, Less than 6 Hours Per Day (ICD-10-PCS; 2017-07-22)
DX: A41.01 Sepsis due to Methicillin susceptible Staphylococcus aureus (principal); J15.6 Pneumonia due to other Gram-negative bacteria; J96.01 Acute respiratory failure with hypoxia; J96.02 Acute respiratory failure with hypercapnia; G93.40 Encephalopathy, unspecified; I33.0 Acute and subacute infective endocarditis; E43 Unspecified severe protein-calorie malnutrition; N17.0 Acute kidney failure with tubular necrosis; I50.21 Acute systolic (congestive) heart failure; J44.1 Chronic obstructive pulmonary disease with (acute) exacerbation; J44.0 Chronic obstructive pulmonary disease with (acute) lower respiratory infection; I48.92 Unspecified atrial flutter; D68.69 Other thrombophilia; E87.0 Hyperosmolality and hypernatremia; Z68.1 Body mass index [BMI] 19.9 or less, adult; K92.2 Gastrointestinal hemorrhage, unspecified; E87.1 Hypo-osmolality and hyponatremia; N39.0 Urinary tract infection, site not specified; C34.90 Malignant neoplasm of unspecified part of unspecified bronchus or lung; E27.40 Unspecified adrenocortical insufficiency; R57.1 Hypovolemic shock; R57.8 Other shock; F17.210 Nicotine dependence, cigarettes, uncomplicated; I95.9 Hypotension, unspecified; D64.9 Anemia, unspecified; D69.6 Thrombocytopenia, unspecified; B95.62 Methicillin resistant Staphylococcus aureus infection as the cause of diseases classified elsewhere; Z87.828 Personal history of other (healed) physical injury and trauma; I25.10 Atherosclerotic heart disease of native coronary artery without angina pectoris; Z86.73 Personal history of transient ischemic attack (TIA), and cerebral infarction without residual deficits; K76.89 Other specified diseases of liver; R65.20 Severe sepsis without septic shock; R74.0 Nonspecific elevation of levels of transaminase and lactic acid dehydrogenase [LDH]; E83.51 Hypocalcemia; E87.70 Fluid overload, unspecified; Z51.5 Encounter for palliative care

== ENCOUNTER 2017-07-24 23:30 | Inpatient (IN) | payer OTHER | END 2017-07-25 01:25 | DRG 871 | LOC: M.2W 23:30 | PROVIDERS: ADMIT Internal Medicine | DX: A41.9 Sepsis, unspecified organism (principal); J96.02 Acute respiratory failure with hypercapnia; J96.01 Acute respiratory failure with hypoxia; N17.0 Acute kidney failure with tubular necrosis; K72.00 Acute and subacute hepatic failure without coma; I50.21 Acute systolic (congestive) heart failure; J44.1 Chronic obstructive pulmonary disease with (acute) exacerbation; I48.92 Unspecified atrial flutter; K92.2 Gastrointestinal hemorrhage, unspecified; E27.40 Unspecified adrenocortical insufficiency; E46 Unspecified protein-calorie malnutrition; Z51.5 Encounter for palliative care; I11.0 Hypertensive heart disease with heart failure; D64.9 Anemia, unspecified; D69.6 Thrombocytopenia, unspecified; Z86.73 Personal history of transient ischemic attack (TIA), and cerebral infarction without residual deficits; Z79.82 Long term (current) use of aspirin; Z79.899 Other long term (current) drug therapy ==